=== PATIENT | male | born 2000 | race Caucasian/White ===

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

== ENCOUNTER 2020-01-27 09:00 | Outpatient (RCR) | payer OTHER, SELFPAY ==
--- NOTE | 2020-01-27 09:00 | BH.COMM ---
Communication Note - Communication with Client Communication Note: met with pt to complete initial paperwork and to complete [facility] Screening. No significant changes since pre-admission screening. Low risk for suicide. No suicidal ideations in the past month. Reports mainly passive thoughts of . Protective factors. Future-oriented.
--- NOTE | 2020-01-27 09:06 | BH.SGPN.GN ---
Behaviors/Verbalizations/Mental Status: []Client alert and oriented, casual dress, hygiene tended to. Eye contact good. Motor activity appropriate. Speech within normal limits. Affect congruent, mood anxious, depressed. Thoughts linear, logical, no signs of hallucinations or delusions. Client denies any active suicidal ideation or intent. Client Response/Progress/Benefit: []Client new to IOP program. He did well to respond to session AEB pt listening attentively to others and being willing to process with the group. Pt identified a mental health positive as making an effort to get outside and go for walks with his dog which has helped to improve his mood. Pt stated additional mental health positive as taking over the cooking responsibilities which he shared has helped to relax his and distract from current worries. Identified current stressor as his grandfather?s health and vulnerability to COVID-19 virus. Pt seemed to benefit from support from peers and challenging himself to identify ways he may be able to practice self-compassion. Pt to continue IOP to increase insight into healthy coping, challenge distorted thinking and reduce mental health sx. Narrative Note: []
--- NOTE | 2020-01-27 10:13 | BH.SGPN.GN ---
Behaviors/Verbalizations/Mental Status: []Client alert and oriented, casually dressed and groomed. Eye contact good. Motor activity appropriate. Speech within normal limits. Affect constricted, mood anxious. Thoughts linear, logical, no signs of hallucinations or delusions. Client Response/Progress/Benefit: []Client responded well to session, attentive and engaged throughout session, taking notes. Client appeared to connect with the topic of fear of failure. Client participated in the discussion of famous failures and was nodding frequently. Client nodded that he has unfairly labeled himself as a failure before due to one mistake or setback. Group identified the impacts of fear of failure on mental health which included; avoidance of new opportunities, poor self-esteem, self-sabotage, increased anxiety and depression, and decreased confidence. Client acknowledged that fear of failure can lead to increased depression and anxiety. Client agreed with peers that in order to move past failure it is important to challenge one?s perspective on failure. Client seemed to benefit from increased awareness of how fear of failure can impact mental health. Engaged and positive during the group activity, helping peers problem-solve solutions. Client's first day of IOP. Will continue IOP tx to prevent decompensation, reduce anxiety, and improve daily functioning. Narrative Note: []
--- NOTE | 2020-01-27 11:15 | BH.SGPN.GN ---
Behaviors/Verbalizations/Mental Status: []Client alert and oriented, casually dressed and groomed. Eye contact good. Motor activity appropriate. Speech within normal limits. Affect constricted, mood anxious. Thoughts linear, logical, no signs of hallucinations or delusions. Client Response/Progress/Benefit: []Client responded well to session, participating during the group activity and willing to complete the worksheet. Client worked with the group to complete the challenge activity and the group shared that support and guidance from fellow participants helped to accomplish the activity. Client completed the fear of failure worksheet and reported that fear of failure is keeping client from applying for a job or keeping a job. Client able to identify barriers that reinforce his fear of failure which included; negative self-talk, lack of plan/direction, lack of motivation, habits and learned behaviors, and fear of stepping out of his comfort zone. Client attentive during discussion of the different strategies to help overcome fear of failure. Group identified strategies such as; positive self-talk, affirmations, opposite action, keeping track of wins, setting smart goals, and accepting that mistakes happen. Client selected wanting to work on using positive self-talk/affirmations to overcome fear of failure. Client appeared to benefit from learning ways to overcome fear of failure. Will continue IOP tx to prevent decompensation, increase healthy coping skills, and improve daily functioning. Narrative Note: []
--- NOTE | 2020-01-27 18:22 | BH.DR.ITP ---
Initial Treatment Plan - Patient Information Visit Information: ADMISSION DATE: EXPECTED LOS: 4-6 weeks - Problems/Symptoms Problem #1:: Depression Symptom:: Sadness, hopelessness, worthlessness, passive thoughts of Problem #2:: Anxiety Symptom:: panic attacks, rumination
--- NOTE | 2020-01-28 09:32 | BH.NA ---
Physical Data - Vital Signs Pulse Rate: 80 Respiratory Rate: 14 Blood Pressure: 118/68 - Height/Weight Height: 1.75 m Weight:: 113.398 kg Weight in Pounds: 250.0 lbs Current Medication Compliance - Medication Compliance Do you take your medication as prescribed?: Yes Nutritional History - Appetite Nutritional Instructions:: If client shows signs of a swallowing problem, weight change of 10 pounds or more in the last month, or is on a diabetic diet, the physician will review and request a dietitian consult, as appropriate. All unintentional weight loss will be referred to the physician for decision on need for dietitian consult. Describe your appetite:: Good Functional Assessment - Sleep Pattern Describe any problems with sleeping: Client states he sleeps 8-10 hours per night. Sensory/Communication Assess - Vision Problems Do you have any vision problems?: Glasses - Communication Problems Do you have difficulty understanding what people are saying?: No Learning Assessment - Education What is your level of education?: Some College Medical Problems/History - Pain Assessment Do you have acute or chronic pain?: No Surgical History - Surgical History Have you had any surgeries? If so, list type and date:: Yes - wisdom teeth Substance Abuse - Substance Abuse Please describe substance abuse in the last 30 days:: Client denies past or present use of alcohol, tobacco or drugs. Client states he drinks caffiene daily, 1-2 cans of pop per day. Mental Status Summary - Mental Status Significant Findings/Observations on Appearance and Mood:: Client is alert and oriented x 4. Client is casually groomed. Client is cooperative with assessment. Client makes fair eye contact. Client's speech has normal rate and volume, clear and coherent. Client appears mildly depressed and mildly anxious. Client makes logical associations and has normal processing. Client has good attention. Client denies delusions/hallucinations, no evidence of same. Client denies current SI, states he has passive SI about 1 time per week. Suicide Assessment - Suicidal Ideation Are you currently or have you been suicidal in the past?: Yes - denies current SI Suicidal Intentional Rating Scale (SIRS): Suicidal thoughts (past) Physician Notification: If Active suicidal thoughts/Will not contract for safety is checked, contact physician and document in the Physician Notification section below. Past Psychiatric History - MH Treatment Hx Past Psychiatric Medications:: Prozac Age of first mental health symptoms: Client states he first went to grief counseling in 2017 when his brother . Client states he was officially diagnosed with depression in July 2019 when he had a suicide attempt. Describe (age, circumstance, etc) any past hospitalizations: Client was hospitalized at [facility] in July 2019 after a suicide attempt with a phone cord around his neck. Current providers for mental health treatment (counselor, psychiatrist, [facility] trimmer, etc.): Client sees Ahmet Thomas for therapy and psychiatrist Dr. Fischer at [facility] in [place]. Fall Risk Assessment - Age Age: Less than 60 - Mental Status Mental Status: Willing & able to ask for assistance when needed - Physical Status Physical Status: No problems - Impairments Impairments: None - Elimination Elimination: Continent AND independent - Gait or Balance Gait or Balance: Walks independently - Hx of Falls History of falls in the past 6 months: No known history - Medications/Substances Psychotropics:: Antidepressants Medications/substances used within the past 24 hours or ordered to administer: 1-2 of the medications/substances listed above - Total Score Total Points:: 1 RN Summary of Impressions - Impressions Recommendations: Include psychiatric and medical issues, treatment planning recommendations, and discharge planning needs. 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 - Level of Care How do the client's current symptoms and functional deficits support need for this level of care?: Client states his feelings of depression have continued since his hospitalization in July of 2019 for a suicide attempt. Client reports feelings of decreased motivation, decreased energy, hopelessness, sleeping too much at times, and being avoidant of others. Client states he has panic attacks once every week or every other week, reports feelings of SOB, chest pressure, hyperventilating and feelings of being overwhelmed during panic attack. Client states he does have self-harming behavior at times, and at times it is related to the anxiety he feels during a panic attack. Client has 2 scratches on his left hand that are scabbed over at this time that he starts are from scratching himself a few days ago. Client has scar on left forearm from previous self-harm. IOP will promote gains and prevent further decompensation while providing social support and skills training.
[2020-01-28 10:42] VITALS: BP 118/68; PULSE 80; RESP 14
== END 2020-01-27 23:59 ==
LOC: BHIOP 09:00
PROVIDERS: Referring Provider Psychiatry & Neurology Psychiatry; Visit Provider Psychiatry & Neurology Psychiatry
DX: F32.9 Major depressive disorder, single episode, unspecified (principal); F41.9 Anxiety disorder, unspecified
CPT/HCPCS: H0035; 90853

== ENCOUNTER 2020-01-28 09:00 | Outpatient (RCR) | payer OTHER, SELFPAY ==
--- NOTE | 2020-01-28 10:08 | BH.SGPN.GN ---
Behaviors/Verbalizations/Mental Status: []Client eye contact good, casually dressed, motor activity appropriate, did not speak during session, but attentive. Mood Anxious, Affect constricted. thoughts linear and intact, no evidence of delusions or hallucinations. Client Response/Progress/Benefit: []Client was an engaged participant throughout group session AEB client listening attentively and taking notes throughout. Client was quiet during group, but he listened and nodded as the group discussed the quote and the ways in which people cope with stressors. Agreed that sometimes people, including himself, cope using unhealthy skills. Group identified unhealthy coping skills which included; denying there is a problem, procrastinating, sleeping, avoidance, and externalizing. Group identified consequences of using unhealthy coping skills which included; problem gets worse, can increase intensity of mental health symptoms, cause guilt, and hurt relationships. Client agreed that learning healthy coping skills takes self-awareness and practice. Listened to the benefits of having a balance of internal and external coping skills. Client seemed to benefit from increased awareness of importance of increasing healthy coping skills and consequences of utilizing unhealthy coping skills. Client?s first week of IOP tx. Will continue IOP tx to prevent decompensation of symptoms, increase healthy coping skills, and improve functioning. Narrative Note: []
--- NOTE | 2020-01-28 11:10 | BH.SGPN.GN ---
Behaviors/Verbalizations/Mental Status: []Client alert and oriented, casually dressed and groomed. Eye contact good. Motor activity appropriate. Speech within normal limits, quiet. Affect congruent, mood depressed and anxious. Thoughts linear, logical, no signs of hallucinations or delusions. Client Response/Progress/Benefit: []Client responded well to session, taking notes and engaged during discussion. Providing more input than in previous session, though remained mostly passive. He contributed as the group discussed the different categories of coping skills which included distraction, emotional release, grounding, self-love, and thought challenging. Client identified using distraction at times but finds this often leads to avoidance which he identified as unhealthy. Participated in creating a coping skills ?menu? for the five categories of coping skills. Client identified wanting to focus on improving thought challenging skills this week. Shared his will help to reduce negative self-talk. He appeared to benefit from increasing repertoire of healthy coping skills. Client progress shown by improved engagement. Will continue IOP tx to prevent decompensation, improve mood stability, and promote healthy change behaviors. Narrative Note: []
--- NOTE | 2020-01-28 11:31 | BH.PSY.EVA_ITS ---
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 Patient gets along with everyone living in his house. He was referred to [facility] by a counselor for decreased functioning due to worsening depression and anxiety symptoms. The patient dropped out of college in 2018 secondary to worsening depression. He had been a finance major. He left his job also when in November 2019. He has been depressed for the most part since 2018. His younger brother in 2017 from a rare cancer and he feels that this has been a trigger for his tendency towards depression since that time. Patient endorses feeling depressed and somewhat sad but he feels that his mood has improved a little in the past week. He does endorse feeling hopeless, worthless but denies any guilt. He has no motivation but does enjoy playing video games, writing and cooking lately. He describes his appetite is good and he has had no change in weight. His sleep is okay he gets anywhere from 6 to 10 hours a night. His energy level is decreased and his concentration is decreased at times. He has a history of passive thoughts that he would not care if he or did not wake up in the morning. He denies any active or fleeting suicidal ideation in recent weeks. He denies homicidal ideation, hallucinations, delusions or sebastian history. He does complain of severe anxiety and he gets a panic attack about once a month now. When he was working he would get a panic attack once or twice every 2 weeks. When he gets very anxious he gets shortness of breath, chest tightness, increased heart rate and feeling of impending doom. He describes himself as a worrier by nature. He denies OCD, eating disorder, trauma or PTSD. He does have a history of self-harm and he most recently in the past few weeks scratched his left hand on the dorsal skin with his fingernails. In addition he scratched his anterior left lower arm. No stitches were required. Current Psychiatric Medications: [] BuSpar 10 mg (2 tabs p.o. 3 times daily); Zoloft 50 mg p.o. daily (x3 weeks); Prozac discontinued 1 week ago. Past Psychiatric History: [] He has a history of one psychiatric admission at [facility] in July 2019 for about 5 to 7 days. He was admitted due to depression with a suicide attempt by putting a phone cord around his neck. The patient says he stopped himself and texted his girlfriend and then his mother came over and he was admitted from the emergency room. He states that this was a suicide attempt. No other suicide attempts. He has a psychiatrist and he sees that person next on March 18, 2020. He has had counseling since 2017 when his brother of cancer. He first did any self-harm by scratching himself in 2018. He was first depressed in 2017 shortly after his brother . He first took any meds for psychiatric reasons at age 17 after his brother . At that time he took Prozac and Xanax. He did not like the way Xanax made him feel so he stopped it. Substance Use History: [] Non-smoker; no alcohol use and no marijuana use. No drug use whatsoever. Allergies: [] No known allergies Medications: [] BuSpar and Zoloft only Past Medical History: [] Negative. [place] teeth but no other surgeries. Normal sexual function. Overweight. Family Psychiatric History: [] His mother and father are both in their mid 50s. Father has diabetes mellitus mother is relatively healthy. The father has a history of OCD and anxiety and takes Zoloft. Psych history in the family he feels is otherwise negative. No suicides in the family. He has a paternal uncle who is an alcoholic. Personal/Social History: [] He was born and raised in [facility]. He describes his childhood as good. His parents are and are loving. He denies any physical, verbal or sexual abuse. He had one brother 2 years younger than him who in 2 separate thousand 17 at age 15 from a rare liver cancer when the patient was 18 years old. This was a trigger for the patient to become depressed and anxious. School was good for him and he was mostly in gifted classes 1 young. He graduated high school and went to [employer] but he quit after the first semester. He was a finance major. 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 He currently has a girlfriend of 18 months and she is supportive. He has not had any other serious girlfriends. 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 Review of Systems: [] Negative except as noted in present illness. Vital Signs: [] Reviewed in nurse's notes and negative. Mental Status Examination: [] Patient is a 19-year-old male who appears normal for stated age and is wearing glasses. He is casually dressed and groomed with good hygiene. He is cooperative during the interview and is somewhat quiet by nature. Eye contact is good. Speech is normal rate and rhythm and fluent with no pressure. Mood is depressed. Affect is constricted and consistent with depression. Thought processes organized and goal-directed. Thought content: No evidence of hallucinations or delusions. There is evidence of passive thoughts that he wound care if he . No evidence of suicidal or homicidal ideation at this time. Reality testing is intact. Intelligence is above average. Judgment is intact. Insight: Some present. Impulsivity moderate. Diagnoses: [] [place] I: [] Major depressive disorder recurrent severe without psychosis; generalized anxiety disorder [place] II: [] Mild cluster B traits [place] III: [] Negative [place] IV: [] School, work issues Plan: [] The patient will start the IOP program at [facility] in behavioral health as the support, structure, education, individual and group therapy will hopefully prevent worsening of the patient's symptoms that might require hospitalization. He felt safe during the interview and if at any time he does not feel safe he will tell us at the IOP or go to the emergency room. The risk, options, possible benefits and side effects and complications of the medications were discussed with the patient and he understands and accepts these. He agreed to increase his Zoloft to 100 mg p.o. daily. He has some at home and another 90-day prescription of [address] so he will take two 50 mg tablets of Zoloft for a total of 100 mg starting in the next day or 2. No prescription was given. I will see the patient in follow-up in 2 to 3 weeks.
--- NOTE | 2020-01-29 09:05 | BH.SGPN.GN ---
Behaviors/Verbalizations/Mental Status: []Client alert and oriented, casually dressed and groomed. Eye contact fair. Motor activity appropriate. Speech within normal limits. Affect congruent, mood anxious and euthymic. Thoughts linear, logical, no signs of hallucinations or delusions. Reviewed client?s symptom tracker, Client marked 2/5 for thoughts of suicide and 0/5 for risk of suicide. Client's individual therapist will be notified. Client Response/Progress/Benefit: []Client responded well to session, attentive and providing supportive statements to peers. Client reports feeling anxious and content today. Client shared he feels anxious because his family experienced an unexpected stressor last night. Client stated even though the problem was resolved, he continues to experience some residual anxiety this morning. Client reported he is glad to be in group today and identified this as a win. Client shared his other win is he practiced thought challenging yesterday while he was cooking. Client stated his food did not turntable man like he had hoped and instead of giving up or criticizing himself, he reminded himself now I know what not to do next time. Reflected on the benefits he experienced by challenging his thinking which included; feeling less depressed and being more willing to try again. Appeared to benefit from reflecting on his application of thought challenging. Will continue IOP tx to prevent decompensation, improve daily functioning, and increase healthy coping skills. Narrative Note: []
--- NOTE | 2020-01-29 10:12 | BH.SGPN.GN ---
Behaviors/Verbalizations/Mental Status: []Client alert and orient. Appearance casual and appropriately groomed. Speech an appropriate rate and tone. Motor activity WNL. Mood depressed and anxious, affect congruent to mood. No evidence of delusion or hallucinations.? Client Response/Progress/Benefit: []Pt receptive of session, engaged throughout the discussion though remaining a mostly passive participant throughout. Attentive to discussion on the importance of healthy communication. Pt listened as the group defined healthy communication and it?s various attributes. Group discussed benefits of healthy communications on mental health and maintaining healthy relationships which included: improved mood, increased ability to get your point across, needs are more likely to be met, increased ability to collaborate with others, and healthier relationships. Pt receptive of and appeared to benefit from psychoeducation portion discussing different styles of communication, nodding throughout and taking notes. Pt noted identifying with becoming more assertive in communication regarding his emotions. Pt shared previously utilizing passive communication but has been making efforts to be more assertive so he can get his needs met and supports know how to help him. Pt to continue in IOP tx to continue to promote healthy change behaviors, reduce depression, and prevent decompensation. Narrative Note: []
--- NOTE | 2020-01-30 11:15 | BH.SGPN.GN ---
Behaviors/Verbalizations/Mental Status: []Client alert and oriented, casual dress, hygiene tended to. Eye contact fair. Motor activity appropriate. Speech within normal limits. Affect constricted, mood depressed and anxious. Thoughts linear, logical, no signs of hallucinations or delusions. Client Response/Progress/Benefit: []Pt responded well to session AEB pt listening attentively to others and providing input if elicited by therapist. Pt stated now that he utilizes more assertive communication with his support people he recognizes he gets his needs met more often and others are less frustrated with him. Pt reported he needs to continue to work on being assertive, especially with sharing how he feels. Pt reported in the past he would just shut down and not tell anyone what was bothering him. Pt worked with group to identify strategies to improve communication. Pt stated he will work on improving his communication by expressing his feelings more often to people he trusts. Pt to continue IOP to increase healthy skills, decrease anxious symptoms and prevent decompensation. Narrative Note: []
--- NOTE | 2020-02-03 09:08 | BH.SGPN.GN ---
Behaviors/Verbalizations/Mental Status: []Client alert and oriented, casually dressed and groomed. Eye contact good. Motor activity appropriate. Speech within normal limits. Affect constricted, mood dysthymic. Thoughts linear, logical, no signs of hallucinations or delusions. Reviewed client?s symptom tracker, no risk for suicidal behaviors or intent as of 02/03/20 client had 2/5 for suicidal ideations which is within client's baseline. Client Response/Progress/Benefit: []Client responded well to session, attentive and participating when prompted. Client reports feeling exhausted today. Client shared he has begun feeling down about being all cooped up as client missed his grandparents and doing things with others. Client stated despite feeling down about quarantine, he has been able to use coping skills and find mental health wins. Client stated he used healthy distractions of cooking and reading this weekend. Client also used opposite action today to get to group because he did not want to get out of bed this morning. Client stated using opposite action and healthy distractions makes client feel like he is moving forward and making progress. Appeared to benefit from reflecting on his application of coping skills. Will continue IOP tx to prevent decompensation, improve mood stability, and increase repertoire of healthy coping skills. Narrative Note: []
--- NOTE | 2020-02-03 10:16 | BH.SGPN.GN ---
Behaviors/Verbalizations/Mental Status: []Client alert and oriented, casually dressed and groomed. Eye contact good. Motor activity appropriate. Speech within normal limits. Affect constricted, mood dysthymic. Thoughts linear, logical, no signs of hallucinations or delusions. Client Response/Progress/Benefit: []Client was attentive throughout AEB actively listening and taking notes throughout. Participated in discussion of the quote and shared agreeing that choosing a healthier path in life can be difficult, especially when fear of the unknown comes into play. Remained mostly passive throughout, though nodding. The group worked together to identify barriers that may prevent choosing a new and healthier path to mental wellness which included; not wanting the change/lack of readiness, lack of motivation and willingness to put forth effort, limited support, as well as having a negative or distorted perspective. Attentive during psychoeducation on the chapters of life, attentive to discussion distinguishing factors in each chapter. Benefited from increased awareness and education on barriers to choosing new wellness paths and the different chapters of life experienced in taking a new path. Progress noted in pt ability to connect with materials discussed, though continues to struggle to provide increased input in group. Will continue IOP tx to further reduce depression, promote healthy coping, thought challenging, and self-care, while improving client?s ability to function at baseline. Narrative Note: []
--- NOTE | 2020-02-03 11:15 | BH.SGPN.GN ---
Behaviors/Verbalizations/Mental Status: []Client alert and oriented, casual dress, hygiene tended to. Eye contact good. Motor activity appropriate. Speech within normal limits. Affect flat, mood depressed and anxious. Thoughts linear, logical, no signs of hallucinations or delusions. Client Response/Progress/Benefit: []Client was an engaged participant in group discussion, contributing to discussion at times and listened attentively to others. Client reported believes he is currently in chapter 3? as client shared he has awareness of behavior that keeps him stuck, but still will engage in that behavior at times. Completed worksheet and willing to share with the group. Pt stated negative thinking, low self-esteem, fear of failure, and isolation are currently keeping him stuck from progress. Pt reported he will work on decreasing negative thoughts by reframing at least 2 negative thoughts everyday. Benefited from group by identifying thoughts and behaviors that have kept him stuck and identifying goal to promote progress. Will continue in IOP to increase healthy coping, challenge distorted thoughts and prevent decompensation. Narrative Note: []
--- NOTE | 2020-02-04 09:02 | BH.SGPN.GN ---
Behaviors/Verbalizations/Mental Status: []Client alert and oriented, casual in appearance. Eye contact fair to good. Motor activity appropriate. Speech within normal limits, quiet. Affect congruent, mood anxious, dysthymic. Thoughts linear, logical, no signs of hallucinations or delusions. Reviewed daily symptom tracker and client reports scores of suicidal ideation at a 1/5 which is decreased from his identified baseline of 2/5. Denies any plan or intent at this time. Client Response/Progress/Benefit: []Pt was an active participant in group AEB pt listening attentively, nodding, and willingness to process with the group. Emotion for today is tired and shared that this is due to getting limited sleep the night before. He identified mental health positive as being able to identify his desire to cancel group due to limited sleep and utilize opposite action skills to encourage himself to get out of the house. Pt stated additional mental health positive as challenging himself to spend some time outdoors in the nice weather. Indicated this aided in elevating his mood the prior date. Expressed stressor as continuing to struggle with lack of sleep. Appeared to benefit from support of the group. Progress noted in pt ability to begin more openly engage in group. Continued IOP tx recommended to continue application of healthy coping skills, identify and challenge distorted thoughts, reduce mental health sx, and prevent decompensation. Narrative Note: []
--- NOTE | 2020-02-04 11:14 | BH.SGPN.GN ---
Behaviors/Verbalizations/Mental Status: []Client alert and oriented, casually dressed and groomed. Eye contact good. Motor activity appropriate. Speech within normal limits. Affect constricted, mood euthymic. Thoughts linear, logical, no signs of hallucinations or delusions. Client Response/Progress/Benefit: []Client engaged participant as evidenced by client providing input throughout discussion and listening attentively to peers. Client worked cooperatively with peers to identify how each resiliency component can help increase personal resiliency. Client identified current stressors in his life that he would like to become more resilient towards. Client reported he wants to work on the resilience component of nurturing a positive view of himself by identifying his wins each night. Client identified personal resilience factors that will support client in this goal which included learning from the past, practicing positive self-talk, and practicing acceptance of what is happening. Client appeared to benefit from identifying goal to improve personal resilience factors. Client to continue IOP to reduce depression, improve mood stability, and increase healthy coping skills. Narrative Note: []
--- NOTE | 2020-02-04 11:51 | BH.PSA ---
Source of Information - Presenting Problems/Circumstances Problems, Referral Source, Mental Status, Client: Client is a 19-year-old single male who was referred to the program by outpatient counselor due to increased sx of depression and anxiety resulting in pt leaving his most recent job and effecting ability to function at baseline. Client additionally dropped out of college in 2019 secondary to worsening depression. Psychiatric Presentation - Psych Issues & Need for Admission Psychiatric Issues:: Depression, passive SI, anxiety, panic Past Psychiatric History - MH Treatment Hx Treatment History: He has a history of one psychiatric admission at [facility] in July 2019 for about 5 to 7 days. [facility] following the of his brother due to cancer. Denies any grief specific counseling First hospitalization:: [facility] Jul 2019 for 5-7 days due to suicide attempt interrupted, self Most recent hospitalization:: as above Medication Trials:: Yes - prozac, xanax ECT Therapy:: No Describe (age, circumstance, etc) any past hospitalizations: He has a history of one psychiatric admission at [facility] in July 2019 for about 5 to 7 days. He was admitted due to depression with a suicide attempt by putting a phone cord around his neck. The patient says he stopped himself and texted his girlfriend and then his mother came over and he was admitted from the emergency room. Current providers for mental health treatment (counselor, psychiatrist, therapeutic case manager, etc.): [facility] for [facility], [facility] as well Development & Family of Origin - Childhood Significant Childhood Events: Pt brother in 2016 when pt was 16 of a rare form of cancer. Hx of self-harm via scratching self on arm, last occurred several weeks ago. - Family Who currently lives in your home?: Lives at home with his mother and father. A close friend of pt's is also staying with the family for the summer as his parents have moved out of state. Describe family composition:: Pt's mother and father are and pt reports having a close relationship with them. Pt has one brother, whom in 2016 at age 15 due to a rare form of liver cancer. - Family History Family Hx of Psychiatric or AOD Problems: PT father has a history of OCD and anxiety and takes Zoloft. Psych history in the family he feels is otherwise negative. No suicides in the family. He has a paternal uncle who is an alcoholic. Parents continue to struggle with grief associates with the loss of their son in 2017 Ethnicity - Culture Do you identify yourself with any particular cultural, ethnic background, or community?: No - Sexuality Sexual Orientation: Declined to answer - Comments Additional Information:: current girlfriend of 18 months whom is supportive Spirituality - Zoroastrianism Do you currently identify with any organized anabaptism?: Unspecified - Beliefs Is there a particular form of support from this community you can use for your recovery?: No Mental Status - Memory Recent Memory: Fair Remote Memory: Fair - Concentration Concentration: Fair - Eye Contact Eye Contact: Fair - Speech Speech: Soft - Thought Process Thought Process: Logical Insight: Fair Judgment: Fair Behavior: Anxious - Orientation Orientation: Time, Person, Place, Situation - Appearance Appearance: Disheveled - Mood Mood: Anxious, Depressed, Dysphoric/tearful - Affect Affect: Appropriate/calm Suicide Assessment - Suicidal Ideation Have you ever felt like hurting yourself?: Yes Please explain:: self-harming hx, hx of one prior suicide attempt, interrupted by self in 2019 Were you using ETOH/drugs at the time?: No Suicidal Intentional Rating Scale (SIRS): Current suicidal thoughts/No plan/Contracts for safety Physician Notification: If Active suicidal thoughts/Will not contract for safety is checked, contact physician and document in the Physician Notification section below. Violent Behavior/Abuse History - Homicidal Ideation Do you have any homicidal thoughts? If so, explain:: No Is there a known potential victim? If yes, who:: No - Abuse Have you ever been abused?: No - Life Events Are there any other significant life events?: Financial loss - recently quit job due to mental health issues, - loss fo brother in 2017 due to liver cancer, Hardships - dropped out of college in 2019 due to mental health - Safety Do you ever feel threatened in your home? If yes, describe:: No Adult Social History - Age 18 to Present Describe your current support system:: Reports his parents, girlfriend, and close friend whom is currently living with pt are major supports Substance Use - Substance Substance Use Type: Caffeine - IV Substance Use Do you have a history of IV use?: denies Leisure/Social Activities - Interests What do you enjoy or might be interested in learning about?: enjoys reading, writing, playing video games, nature, spending time outdoors, animals Education & Occupational Histo - Education What is your level of education?: Some College - Dropped out of [employer] due to mental ashley issues Do you have any learning disabilities?: No - Occupation List any current or past employment:: Recently quit job at a [employer] due to depression, previously has worked at [employer] - Service Have you ever been in the ?: No Legal History - Records Have you had any past legal charges?: No Do you have any current legal charges?: No Have you ever been incarcerated? If yes, describe:: No - Court Orders Have you had any past court orders for psychiatric treatment?: No Do you have a present court order for psychiatric treatment?: No Problem Checklist - Current Problem Areas Problem List: Depressed mood/sad, Bereavement, Anxiety, Additional psychosocial stressors - career questioning Discharge Planning Needs - Anticipated Follow-Up Private Therapist/Psychiatrist:: [facility] Family and Caregiver Contacts:: Mother and father Release of Information Signed:: Yes Snout Puller's Assessment - Client's Needs What are the client's feelings about the program?: Pt reports feeling hopeful and looking forward to gaining skills for better managing his mental health sx through the IOP program What are the client's goals?: Decrease depression and anxiety, improve self-confidence, improve independent living skills Diagnoses - Diagnoses Diagnosis #1:: Major depressive disorder recurrent severe without psychosis Diagnosis #2:: Generalized Anxiety Disorder Interpretive Summary - Interpretive Summary Interpretive Summary: Client is a 19-year-old single male who was referred to the program by outpatient counselor due to increased sx of depression and anxiety resulting in pt leaving his most recent job and effecting ability to function at baseline. Client additionally dropped out of college in 2019 secondary to worsening depression. At time of intake, pt reports he has been depressed for the most part since 2018. His younger brother in 2017 from a rare cancer and he feels that this has been a trigger for his tendency towards depression since that time. Client has a hx of one prior hospitalization in July 2019 due to a prior suicide attempt. He has a history of passive thoughts that he would not care if he or did not wake up in the morning. He denies any current active or fleeting suicidal ideation. Client is currently endorsing a depressed mood with anhedonia, low energy, and passive thoughts of . Client also reports increased anxiety, agitation, and negative thinking which impact social, familial, and occupational functioning Treatment Plan Recommendations - Recommendations Guidelines: Special needs identified to be included in the development of an individualized treatment plan regarding past psychiatric history and treatment, developmental events, family relationships/events/culture, past and/or current educational, occupational, social, and residential experience, and legal status. Recommendations:: The patient will start the IOP program at [facility] in behavioral health as the support, structure, education, individual and group therapy will hopefully prevent worsening of the patient's symptoms that might require hospitalization.
--- NOTE | 2020-02-04 11:51 | BH.MTP_ITS ---
[facility] Treatment Plan - Patient Information Program Physician:: Dr. Charlene Cooney Primary Therapist:: DANIELLE Olsen - Psychiatric Diagnoses Psychiatric Diagnoses:: Major depressive disorder recurrent severe without psychosis; generalized anxiety disorder Diagnosis Code(s):: F 33.2 - Estimated LOS Estimated LOS (in weeks):: 6 Problem/Goal #1 - Problem/Goal #1 Stated Goal:: Client will reduce depression, feelings of hopelessness, and suicidal ideation due to Major Depressive Disorder through Intensive Outpatient Program. Description of Barriers: Pt's negative core beliefs, distorted thoughts, hopelessness, anhedonia, and chronic suicidal ideation could be potential barriers to treatment. Functional Impact: Client is a 19-year-old single male who was referred to the program by outpatient counselor due to increased sx of depression and anxiety resulting in pt leaving his most recent job and effecting ability to function at baseline. Client additionally dropped out of college in 2018 secondary to worsening depression. At time of intake, pt reports he has been depressed for the most part since 2018. His younger brother in 2016 from a rare cancer and he feels that this has been a trigger for his tendency towards depression since that time. Client has a hx of one prior hospitalization in July 2019 due to a prior suicide attempt. He has a history of passive thoughts that he would not care if he or did not wake up in the morning. He denies any current active or fleeting suicidal ideation. Client is currently endorsing a depressed mood with anhedonia, low energy, and passive thoughts of . Client also reports increased anxiety, agitation, and negative thinking which impact social, familial, and occupational functioning Goal Relevant Strengths/Supports: Pt is intelligent, creative, has prior coun seling experience, resilient, and expresses motivation to get better. - Objectives Objective #1 Stated Objective: Identify 2-3 thoughts or behaviors that reinforce depressive symptoms and replace negative thoughts with more rational thinking. Interventions: Therapist will help client identify distorted thinking that t riggers or reinforces depressive state. Therapist will provide client with resources to help guide in replace trigger thoughts or behaviors. Discharge Criteria: Client will have met this goal when he can verbalize at least 2 thoughts or behaviors that reinforce depressive episode, identify rational response to replace those thoughts, and effectively be able to defeat suicidal ideation. Target Date: 03/17/20 Review Date: 03/03/20 Objective #2 Stated Objective: Pt will decrease depressive symptoms AEB pt?s score on the DSM 5 cross-cutting measure and improve pt?s daily functioning. Interventions: Through groups and individual therapy, pt will be provided with education on cognitive distortions, mistaken beliefs, and identifying and combating negative self-talk. Therapist will assist pt with getting back into the activities she once enjoyed as well as increasing healthy coping strategies. Discharge Criteria: Pt will have met this goal when pt?s score on the DSM 5 cross cutting measure for depression has been decreased and per pt?s report daily functioning has improved. Target Date: 03/17/20 Review Date: 03/03/20 Problem/Goal #2 - Problem/Goal #2 Stated Goal:: Stabilize anxiety level while increasing ability to function on daily basis. Description of Barriers: Pt's negative core beliefs, distorted thoughts, hopelessness, anhedonia, and chronic suicidal ideation could be potential barriers to treatment. Functional Impact: Client is a 19-year-old single male who was referred to the program by outpatient counselor due to increased sx of depression and anxiety resulting in pt leaving his most recent job and effecting ability to function at baseline. Client additionally dropped out of college in 2018 secondary to worsening depression. At time of intake, pt reports he has been depressed for the most part since 2018. His younger brother in 2017 from a rare cancer and he feels that this has been a trigger for his tendency towards depression since that time. Client has a hx of one prior hospitalization in July 2019 due to a prior suicide attempt. He has a history of passive thoughts that he would not care if he or did not wake up in the morning. He denies any current active or fleeting suicidal ideation. Client is currently endorsing a depressed mood with anhedonia, low energy, and passive thoughts of . Client also reports increased anxiety, agitation, and negative thinking which impact social, familial, and occupational functioning Goal Relevant Strengths/Supports: Pt is intelligent, creative, has prior counseling experience, resilient, and expresses motivation to get better. - Objectives Objective #1 Stated Objective: Client will learn and utilize 2-3 healthy coping strategies to manage anxious symptoms. Interventions: Therapist will assist client in learning internal coping strategies to manage anxious symptoms, along with helping client identify triggers. Discharge Criteria: Client will have achieved this goal when can consistently utilize at least 2 healthy coping strategies to manage anxious symptoms. Target Date: 03/17/20 Review Date: 03/03/20 Objective #2 Stated Objective: Pt will decrease anxious symptoms AEB pt?s score on the DSM 5 cross-cutting measure improve pt?s daily functioning. Interventions: Through groups and individual therapy, pt will be provided education about anxiety?s impact on body and common physiological reaction to anxiety. Therapist will teach pt appropriate breathing techniques and build healthy coping skills to manage daily anxieties. Discharge Criteria: Pt will have met this goal when pt?s score on the DSM 5 cross cutting measure for anxiety has been decreased and per pt?s report daily functioning has improved. Target Date: 03/17/20 Review Date: 03/03/20
--- NOTE | 2020-02-04 11:52 | BH.MDN ---
Multi-Disciplinary Note - Note 30-min Individual Time Started:: 10:42 Date: 02/04/20 Purpose of session/treatment goals addressed:: The purpose of this session was to gather information on client's current stressors, symptoms, and treatment goals. Another goal was to build rapport and introduce client to exposure therapy as a tool for reducing social anxiety. Eye Contact:: Good Motor Activity:: Appropriate Appearance:: Casual Speech:: Appropriate Mood:: Anxious, Depressed Affect:: Congruent Thoughts:: Linear, Logical, No evidence of hallucinations/delusions noted Staff Interventions:: Therapist used active listening and open-ended questions to explore client's current stressors, symptoms, history, and treatment goals. Provided empathic responses and supportive feedback. Therapist used NM component of strengths perspective to build rapport and help client identify personal resilience factors. Worked with client to establish goals for treatment. Therapist provided psychoeducation on anxiety and safety behaviors which reinforce anxiety. Client Response:: Client responded well to session, open to meeting with therapist and actively engaged throughout. Client was referred to program by outpatient therapist, Ahmet Thomas, at the [facility] for ongoing depression and anxiety impacting ability to function at baseline and preventing client from maintaining employment as a result. Client shared that he has struggled with his mental health off and on throughout his life, but noticed it has been increasingly worse in the past year. Client shared he had started at the [employer] last fall but struggled significantly with social anxiety and depression which resulted in client dropping out of school and shortly after being hospitalized in July of 2019 for suicidal ideation. He shared struggling to effectively manage his mental health since. Identified current symptoms include negative thoughts about self, rumination, depression, poor self-confidence, isolation, avoidance, increased anxiety, agitation, and anhedonia. Client discussed that he is hopeful the [facility] program will help him to improve his ability to manage his own mental health sx. Expressed he is becoming more comfortable in the [facility] treatment environment and has found the information discussed in groups to already be of help to him. Shared that he would like to specifically work on improving his variety of coping skills, increase emotion regulation skills, and reduce social anxiety. Client shared that his social anxiety has had a major impact on his depression and self-confidence as he often worries he will embarrass himself or make a mistake which has kept him from reaching out to others or trying new things in the past. Receptive of psychoeducation on safety behaviors and exposure therapy as a means of reducing overall anxiety. Expressed willingness to begin with challenging himself in the treatment environment to become more accustomed to speaking in groups. Expressed plans to begin with a small goal of providing input once per group. Risks/Concerns:: Client denies any active suicidal ideations, plan, and intent as of 02/04/20. Progress Toward Goals/Plan:: Client's first week of IOP tx. Appears to be making some progress in ability to apply skills already learned AEB reports of engaging in opposite action and increased use of thought challenging skills. Client is currently endorsing a depressed mood with anhedonia, low energy, and passive thoughts of . Client also reports increased anxiety, agitation, and negative thinking. Client shared his goals include reducing depression and anxiety, improving use of healthy coping skills, and improving self-esteem. Will continue IOP tx to prevent decompensation, improve daily functioning, and reduce anxiety. Time Stopped:: 11:15
--- NOTE | 2020-02-05 09:01 | BH.SGPN.GN ---
Behaviors/Verbalizations/Mental Status: []Client alert and oriented, casual dress, hygiene tended to. Eye contact good. Motor activity appropriate. Speech within normal limits. Affect constricted, mood dysthymic. Thoughts linear, logical, no signs of hallucinations or delusions. Reviewed client?s symptom tracker, pt indicates a 1/5 for suicidal thoughts and a 1/5 for suicidal intention. These scores are lower than pt's baseline for suicidal ideation and intent. Pt does not seem to be imminent risk for self. Client Response/Progress/Benefit: []Pt responded well to session as evidenced by pt openly sharing thoughts and feelings and listened attentively to peers. Pt reported a mental health positive as engaging in self-care by taking a nap because didn't sleep well the night before. Pt stated the nap made him feel more energized and able to be productive the rest of the night. Pt reported additional mental health positive as spending time with his cat which he found calming. Pt stated his stressor is not accomplishing everything on his to-do list yesterday. Pt stated at first he had negative thoughts about not being productive enough, but used thought challenge to help. Pt to continue IOP to increase healthy coping, challenge distorted thoughts and prevent decompensation. Narrative Note: []
--- NOTE | 2020-02-05 10:13 | BH.SGPN.GN ---
Behaviors/Verbalizations/Mental Status: []Client alert and oriented, casual appearance. Eye contact good. Motor activity appropriate. Speech within normal limits. Affect constricted, mood dysthymic and anxious. Thoughts linear, logical, no signs of hallucinations or delusions. Client Response/Progress/Benefit: []Client responded well to session, mostly quiet but nodding and engaged during the activity. Attentive during discussion on the quote. Group identified the benefits of change which included: personal growth, solving problems, improving mental health, getting out of bad circumstances, and getting unstuck. Worked with the group to identify barriers to change, which included: uncomfortable emotions such as anxiety, lack of motivation, lack of energy, external variables, and negative thinking. Client participated along with group in activity where they identified and discussed the emotions related to change. Client gave an example of a time when he felt torn about a change because he wanted to experience something different, but he did not want to go out of his comfort zone. Benefited from increased awareness and understanding of emotions, benefits, and barriers related to change. Will continue IOP tx to prevent decompensation, improve mood stability, and further combat distortions that reinforce symptoms. Narrative Note: []
--- NOTE | 2020-02-05 11:19 | BH.SGPN.GN ---
Behaviors/Verbalizations/Mental Status: []Client alert and oriented, casually dressed and groomed. Eye contact good. Motor activity appropriate. Speech within normal limits, quiet. Affect constricted, mood anxious and depressed. Thoughts linear, logical, no signs of hallucinations or delusions. Client Response/Progress/Benefit: []Client was a more active participant compared to baseline, AEB providing increased input during discussion, taking notes, and listening to peers. Client participated during discussion on the change process as well as weighing the pros and cons associated with change. He shared specific emotions one might experience throughout the process of change, indicating fear and excitement as emotions common with change. Client benefited from learning to work through pros/cons of personal changes through use of decisional balance sheet. Identified a change he wants to make is considering getting a job. Client able to identify the pros and cons of this change and indicated that making the change would improve his mood and feel more confident but might increase social anxiety. Did well to work with group to identify strategies for overcoming resistance to change, sharing that self-talk and opposite action is most helpful for him. Recommended continued IOP tx to promote use of behavior activation skills, increase consistent application of skills, reduce distorted thought patterns, and prevent decompensation. Narrative Note: []
--- NOTE | 2020-02-10 09:02 | BH.SGPN.GN ---
Behaviors/Verbalizations/Mental Status: []Client alert and oriented, appropriately groomed and casual in appearance. Eye contact good. Motor activity appropriate. Speech within normal limits, quiet. Affect congruent, mood anxious. Thoughts linear, logical, no signs of hallucinations or delusions. Reviewed daily symptom tracker and client reports suicidal ideation as 1/5 which is consistent with baseline, denies plan, or intent at this time. Client Response/Progress/Benefit: []Pt was an active participant in group discussion AEB listening to peers, providing some feedback, and openly processing with the group. Emotion for today is a little bit anxious but neutral. Pt identified mental health positive as being able to more consistently engage in activities he enjoys such as writing and cooking. Discussed with group a short story he has been working on and shared this aids with emotional release for him as well. Pt stated additional mental health positive as being able to go ?Easter caroling? to extended family member?s houses with his immediate family. Expressed that this helped him feel connected to supports he cannot physically be with ow due to COVID-19 restrictions. Current stressor identified as feeling anxious about not having a solid plan for his future. He was receptive of and appeared to benefit from feedback provided by group on reducing anxiety and reframing distorted thoughts. Progress noted in pt ability to more actively apply opposite action and healthy coping skills to reduce depression. Continues to struggle with self-deprecation. Continued IOP tx recommended to continue application of healthy coping skills, increase consistent skill application, and prevent decompensation. Narrative Note: []
--- NOTE | 2020-02-10 10:18 | BH.SGPN.GN ---
Behaviors/Verbalizations/Mental Status: []Client alert and oriented, casual appearance. Eye contact good. Motor activity appropriate. Speech within normal limits. Affect constricted, mood dysthymic. Thoughts linear, logical, no signs of hallucinations or delusions. Client Response/Progress/Benefit: []Client responded well to session and contributed to discussion of the quote, sharing ?we seek control because we are creatures of comfort. We don?t like to be uncomfortable, so we try all we can to get something back in our comfort zone.? Client connected with the group topic of crisis and helped to define crisis. Group identified examples of potential crises to include loss of a loved one, relationship problems, divorce, job loss, the current COVID-19 pandemic, and medical problems. Client agreed with peers that anything can lead to a crisis. Connected with discussion on how coping with external crises by using unhealthy coping skills could result in a personal crisis. Group identified unhealthy coping skills to include; using substances, denial, avoidance/isolation, anger outbursts, suicidal thoughts, and overscheduling. Group reported that it is important to have awareness of warning signs which can prevent hitting ?rock bottom.? Group identified warning signs for crisis and Client completed the personal warning signs worksheet. Identified crisis warning signs to included; loss of interest, not having regular sleep, and negative thinking. Benefited by increasing awareness of crisis and personal warning signs. Progress noted in client?s report of practicing opposite action and thought challenging more consistently. Will continue IOP tx to promote mood stability and further decrease intensity of symptoms. Narrative Note: []
--- NOTE | 2020-02-11 09:05 | BH.SGPN.GN ---
Behaviors/Verbalizations/Mental Status: []Client alert and oriented, casually dressed and groomed. Eye contact good. Motor activity appropriate. Speech within normal limits. Affect constricted, mood anxious. Thoughts linear, logical, no signs of hallucinations or delusions. Reviewed client?s symptom tracker, no signs of suicidal ideation, plan, or intent as of 02/11/20. Client Response/Progress/Benefit: []Client responded well to session, attentively listening and engaged during discussion. Client reports feeling lost but also hopeful today. Client shared he has been feeling lost and somewhat anxious about his future lately. Client stated he does not know exactly what he wants to do and what his life path will look like. Client shared in the past this would have lead to a depressive cycle, but he has been able to challenge his thinking. Client has also been looking into possible career paths and trying to figure out his interests which is helping client stay hopeful. Client reported his mental health wins today include beginning to identify hobbies and areas of interest as well as not having any thoughts of lately. Client shared he was having thoughts of daily on a daily basis, so this is significant for him. Appeared to benefit from reflecting on his use of thought challenging. Progress noted in client's reduced passive thoughts of . Will continue IOP tx as client continues to struggle with negative thoughts, anxiety, and managing his symptoms consistently. Narrative Note: []
--- NOTE | 2020-02-11 11:19 | BH.SGPN.GN ---
Behaviors/Verbalizations/Mental Status: []Pt eye contact good, casually dressed, motor activity appropriate, speech normal rate and tone, mood anxious and dysthymic, congruent affect, thoughts linear and intact, no evidence of delusions or hallucinations. Client Response/Progress/Benefit: []Client responded well to session AEB listening and taking notes, as well as providing increased input to discussion. Engaged in activity about facts and statistics of mental illness. Group connected with the mental health statistics, recognizing the prevalence of mental health. Group brainstormed strategies to combat social and perceived stigma which included: educating others and themselves, no longer using negative language about mental illness, being open about mental health, volunteering, and not using deflection like humor or joking to minimize symptoms. Client stated he believes he would benefit from sharing his mental health needs with his supports on a more consistent basis rather than avoid in order to reduce social and perceived mental health stigma. Appeared to benefit from increasing awareness of strategies to combat stigma. Progress in improved input and reduced depression. Will continue IOP tx to reduce anxiety and depression, improve change behaviors, improve consistent application of coping skills, and prevent decompensation. Narrative Note: []
--- NOTE | 2020-02-11 11:43 | PCM.BH.PN ---
Progress Note Progress Note: History of Present Illness/Interim History: [] The patient is a 19-year-old single male who is seen in follow-up at the behavioral health IOP program at [facility]. I last saw the patient 2 weeks ago and at that time his dose of Zoloft was increased to 100 mg p.o. daily. The patient states that he feels his mood is less depressed now and he feels that he has improved due to the increase in the Zoloft dose. He denies any hopelessness or worthlessness. He denies any passive thoughts that he would not care if he for the past 2 weeks. He is still very stressed by the COVID-19 quarantine in the isolation that it requires. He is also looking towards the future and is stressed by trying to decide what career or jobs that he wants to pursue. His sleep is adequate but he is aware that he needs to try to keep a regular sleep-wake hours. He is sometimes using ZzzQuil to help him sleep. He denies any thoughts of self-harm or any actions of self-harm. He is enjoying walking his 1-year-old puppy. He is still anxious but slightly less anxious than prior to increasing the dose of the Zoloft. He denies any suicidal or homicidal ideation. Discussed with the patient that he should get more improvement from the increase Zoloft as he is only been taking it for about 9 or 10 days now. Current Psychiatric Medications: [] Zoloft 100 mg p.o. daily (x9 days); BuSpar 10 mg (2 tabs p.o. 3 times daily). Mental Status Examination: [] Patient is a 19-year-old male who appears normal for stated age and has casual dress and grooming with good hygiene. He is wearing glasses. He is cooperative during the interview and his eye contact is good. His speech is normal rate and rhythm and fluent with no pressure. His mood is depressed but less depressed than before. His affect is constricted. His thought processes organized and goal-directed. Thought content: No evidence of suicidal ideation, homicidal ideation or passive thoughts of . No evidence of hallucinations or delusions. Judgment is intact. Insight: Some present. Impulsivity: Moderate. Diagnoses: [] [place] I: [] Major depressive disorder, recurrent, severe, without psychosis; generalized anxiety disorder [place] II: [] Mild cluster B traits [place] III: [] Negative [place] IV:[]]school and work issues Plan: [] The patient will continue the IOP program as the structure, support, education, and individual and group therapy will hopefully prevent worsening of the patient's symptoms that might require hospitalization. He felt safe during the interview and if at any time he does not feel safe he will tell us or go to the emergency room. The risk, options, possible benefits and side effects of the medication were discussed with the patient and he understands accepts these. He will continue his Zoloft at 100 mg p.o. daily. He is taking two 50 mg tablets since he has a large prescription of these at home. He will continue to follow-up with his outpatient providers and I will see the patient in follow-up also.
--- NOTE | 2020-02-11 12:39 | BH.MDN_ITS ---
Multi-Disciplinary Note - Note 45-min Individual Time Started:: 08:40 Date: 02/11/20 Purpose of session/treatment goals addressed:: The purpose of this session was to review client's current symptoms, stressors, and treatment goal progress. Another goal was to provide psychoeducation on depression maintenance cycles, distortions, and healthy coping skills. Eye Contact:: Good Motor Activity:: Appropriate Appearance:: Casual Speech:: Appropriate Mood:: Euthymic, Anxious Affect:: Congruent Thoughts:: Linear, Logical, No evidence of hallucinations/delusions noted Staff Interventions:: Therapist used active listening and open-ended questions to gather client's current symptoms, stressors, and perception of treatment goal progress. Therapist reviewed client's answers and helped client identify themes. Therapist provided psychoeducation on depression and depression maintenance cycles as well as the role of behaviors and cognitive distortions that reinforce depression. Therapist strength-based concepts of motivational interviewing to identify areas in which he is beginning to break current maintenance cycles. Discussed areas for continued focus and aided pt in brainstorming ways to further engage in prosocial activities. Provided pt with homework to complete a cognitive distortions self-assessment. Client Response:: Client responded well to session, open to meeting with therapist. Client expressed feeling ?tired but pretty good? on this date. Went on to express not receiving as much sleep as usual the past few days and attributes this to having more vivid dreams than usual that have woken him throughout the night. Client reflected on his progress in treatment thus fair, indicating that he believes he is seeing improvements in areas of both anxiety and depression. Discussed specifically seeing improvements in insight levels as he is now able to better recognize negative thoughts impacting his mood. Additionally noted that he has not experienced active thoughts of since beginning IOP treatment. Client shared increased comfort in croup environment which has aided in following through with his goal of speaking at least once per group. Although he has identified progress in various areas, Client discussed recent worries that he may be exhibiting warning signs for increased depression as he has been experiencing more loneliness and boredom when at home. Worked with therapist to review current routine and identify any recent changes contributing. Client shared he has not recently been cooking which is an activity he has recently found highly enjoyable. Receptive of challenging himself to do some cooking this weekend. Additionally, client expressed that he is naturally a more physically affectionate persona and that with the new social distancing restrictions he is struggling to adjust. Client shared struggling specifically in regard to feeling connected with his girlfriend when he is unable to hug her or see her in person. Receptive to brainstorming creative ways to feel more connected such as cooking with her via video chat, painting together on video chat, or reading together. Receptive to psychoeducation on depression and maintenance behaviors. Client connected with how behaviors reinforce depression and can impact thought patterns as a result. Introduced distorted thinking patterns to client and provided a distorted thinking self- assessment for him to complete for homework. Risks/Concerns:: Client denies any active suicidal ideations, plan, or intent as of 02/12/20. Client future oriented throughout session. Progress Toward Goals/Plan:: Client appears to be responding well to treatment AEB client sharing more during group sessions, reports decreased suicidal thoughts, and improved ability to engage in activities he previously enjoyed. Client discussed ongoing issues with depression via feeling socially isolated and lonely as well as struggling with anxiety and distorted thoughts about fears of failing to be successful in his future plans for himself. Client will continue IOP tx to improve daily functioning that has been impaired by anxiety and depression, as well as improve mood stability. Time Stopped:: 09:23
--- NOTE | 2020-02-12 09:00 | BH.SGPN.GN ---
Behaviors/Verbalizations/Mental Status: []Client alert and oriented, casual dress, hygiene tended to. Eye contact good. Motor activity appropriate. Speech within normal limits. Affect constricted, mood euthymic. Thoughts linear, logical, no signs of hallucinations or delusions. Client Response/Progress/Benefit: []Pt responded well to session as evidenced by pt listening attentively to others and openly sharing thoughts and feelings. Pt reported yesterday was a heavy emotional day for him. Pt shared he spent some time reflecting on his symptoms prior to IOP. Pt stated it was emotional because able to see how severe his symptoms were especially with significant thoughts of . Pt reported since starting IOP his thoughts of have significantly decreased. Pt reported a mental health positive is being able to recognize progress within himself. Pt stated additional mental health positive was having a me day after IOP yesterday in which he just relaxed and focused on rest. Pt reported current stressor is not being able to see his girlfriend for the past month due to having to quarantine because of the coronavirus. Pt to continue IOP to increase healthy coping, challenge distorted thoughts and prevent decompensation. Narrative Note: []
--- NOTE | 2020-02-12 10:11 | BH.SGPN.GN ---
Behaviors/Verbalizations/Mental Status: []Pt eye contact good, casually dressed, motor activity appropriate, speech normal rate and tone, mood anxious, dysthymic, congruent affect, thoughts linear and intact, no evidence of delusions or hallucinations. Client Response/Progress/Benefit: []Client was a semi-active participant AEB completing worksheet, providing some input, and listening attentively to peers. Remained mostly passive throughout. Client did well to work with the group to define anger and its causes, as well as the potential consequences of unhealthy management of anger. These included: losing relationships, guilt, damaged property, increased rumination, and other?s avoiding us. He nodded as others personal examples regarding how their anger response has negatively impacted them in the past. Worked with group to review common anger responses and shared that his common anger responses include: ignoring others, isolating, sarcasm, getting defensive, and cursing. Identified this is impacting his ability to effectively communicate with his supports. Client appeared to benefit from psychoeducation on the negative impacts of unmanaged anger and increasing self-awareness of own anger signs. Progress noted as client reports increased ability to implement self-care skills as well as improved mood. Will continue IOP tx to prevent decompensation, promote healthy change behaviors, reduce distorted thought patterns, and improve mood stability. Narrative Note: []
--- NOTE | 2020-02-12 11:08 | BH.SGPN.GN ---
Behaviors/Verbalizations/Mental Status: []Client alert and oriented, casually dressed and groomed. Eye contact good. Motor activity appropriate. Speech within normal limits. Affect congruent, mood euthymic. Thoughts linear, logical, no signs of hallucinations or delusions. Client Response/Progress/Benefit: []Client was an engaged participant throughout group AEB client providing input throughout discussion. Client contributed to the continued discussion of how people express anger as well as the underlying emotions of anger. Client reported his underlying emotions to anger often include; stressed, overwhelmed, confused, wronged, and feeling like things are unfair. Client helped the group identify common warning signs of anger such as; feeling hot, tense, headaches, and restlessness. Group brainstormed with group healthy coping skills to help manage anger which included: mindfulness, deep breathing, angry dancing, going outside, and progressive muscle relaxation. Client selected angry dancing and venting to a trusted support as his coping skills to manage anger. Client appeared to benefit from brainstorming with the group potential strategies to manage anger in healthy ways. Recommended continued IOP tx to prevent decompensation, improve mood stability, and further increase healthy coping skills. Narrative Note: []
--- NOTE | 2020-02-17 10:17 | BH.SGPN.GN ---
Behaviors/Verbalizations/Mental Status: []Client alert and oriented, neatly dressed and groomed. Eye contact good. Motor activity appropriate. Speech within normal limits. Affect constricted, mood euthymic. Thoughts linear, logical, no signs of hallucinations or delusions. Client Response/Progress/Benefit: []Client receptive of session, engaged throughout. He did well to work with the group to reflect on the quote and discussed the ways in which perspective can impact mental health and one's outlook on stressors. Client shared his mood impacts his perspective and he shared like when you're happy you're positive, and when you're depressed you're negative. Contributed to group discussion on how one develops perspective. Client worked with group to identify how negative perspective can impact mental health which included: unrealistic expectations, self-sabotage, maintain depression and anxiety, overgeneralizing, increased distorted thoughts, and decreased self-confidence. Client shared having a positive or open-minded perspective can help a person overcome challenges and break out of unhealthy maintenance cycles. Client appeared to benefit from increasing understanding of mental health benefits of a positive perspective and potential consequences to progress when perspective is negative. Progress noted in client's report of reduced thoughts of . Will continue IOP tx to promote use of healthy coping skills, reduce depressive symptoms further, and improve mood stability. Narrative Note: []
--- NOTE | 2020-02-17 11:17 | BH.SGPN.GN ---
Behaviors/Verbalizations/Mental Status: []Client alert and oriented, casual dress, hygiene tended to. Eye contact poor. Motor activity appropriate. Speech within normal limits. Affect flat, mood anxious and depressed. Thoughts linear, logical, no signs of hallucinations or delusions. Client Response/Progress/Benefit: []Client responded well to session, attentive and engaged throughout session. Group shared that if one does not recognize their strengths, it could lead to increased mental health symptoms, and giving up on goals. Client able to identify personal strengths he possesses which includes: patience, intelligence, logic, loves to learn, and good sense of humor. Client reported he has struggled with identifying personal strengths because has viewed himself in a negative way for a long time. Client connected with a peer that he feels conceited when identifies his positives. Seemed to benefit from learning about difference between grandiose and confidence. Appeared to benefit from recognizing personal strengths and identifying strategies to increase recognition of strengths. Will continue IOP tx to prevent decompensation, decrease depressive symptoms and reduce negative thinking. Narrative Note: []
--- NOTE | 2020-02-18 09:06 | BH.SGPN.GN ---
Behaviors/Verbalizations/Mental Status: []Client alert and oriented, appropriately groomed and casual in appearance. Eye contact fair to good. Motor activity appropriate. Speech within normal limits. Affect congruent, mood anxious, euthymic. Thoughts linear, logical, no signs of hallucinations or delusions. Reviewed daily symptom tracker and client denies suicidal ideation, plan, or intent at this time. Client Response/Progress/Benefit: []Client actively engaged in session AEB attentively listening to others and openly processing with the group. Reported emotion for the day is ?content? and indicated that this is due to feeling as though he is making consistent progress in treatment and in managing his mental health sx. Client did well to identify current mental health wins and indicated that one win is continuing to have daily ?casual mental health check-ins? with his mom. Expressed this has kept him aware of his own emotions as well as allowed for increased connection with his mom. Client indicated that another win is making some progress in ?fighting off those feelings of being distant?. He shared that he was able to do so by taking time to practice some grounding skills via cooking. Noted his stressor for the day is going to do yard work at his grandmother?s house as he is lacking motivation to do so. Appeared to benefit from group support and structure. Recommended continued tx to increase mood stability, improve coping repertoire, and prevent decompensation.? Narrative Note: []
--- NOTE | 2020-02-18 09:06 | BH.SGPN.GN ---
Behaviors/Verbalizations/Mental Status: []Client alert and oriented, appropriately groomed and casual in appearance. Eye contact good. Motor activity appropriate. Speech within normal limits. Affect congruent, mood anxious, dysthymic. Thoughts linear, logical, no signs of hallucinations or delusions. Reviewed daily symptom tracker and client denies suicidal ideation, plan, or intent at this time. Client Response/Progress/Benefit: []Pt receptive of session, engaged throughout AEB listening to others share, nodding when agreeing or able to relate, and openly processing with the group. Identified emotion for the day as ?tired? as he has been struggling with sleep over the past several days. Pt did well to identify current mental health wins and indicated that one win was using opposite action to challenge himself to practice some mindfulness via gardening. Expressed feeling more positive as a result. Pt noted that another win is being able to open up more to his mother about his mental health which is something he has avoided in the past. Expressed that a current stressor is ?feeling more distant and disconnected. Receptive of mindfulness grounding suggestions provided by fellow participants. Appeared to benefit from group support and identifying areas of progress as well as problem solving current stressor. Recommended continued IOP tx to further promote healthy change behaviors, maintain stability, and prevent decompensation.?? Narrative Note: []
--- NOTE | 2020-02-18 10:15 | BH.SGPN.GN ---
Behaviors/Verbalizations/Mental Status: []Client alert and oriented, casually dressed and groomed. Eye contact good. Motor activity appropriate. Speech within normal limits. Affect constricted, mood euthymic. Thoughts linear, logical, no signs of hallucinations or delusions. Client Response/Progress/Benefit: []Client responded well to session, attentive and providing input to discussion. Client reported he connects with quote reporting ?you sometimes have to risk hurting others to take care of yourself.? Client agreed with peers that without healthy boundaries, one?s mental health with worsen. Group identified the benefits to setting boundaries as well as the consequences of not setting healthy boundaries. Participated in the discussion of benefits of setting boundaries which included; feeling happier, less negative thinking, avoidance of toxic people, and ability to manage mental health better. Client engaged during discussion of the different types of boundaries and able to identify examples of each. Client also helped the group recognize the consequences of not having healthy boundaries for each type. Client seemed to benefit from increased awareness of how poor boundaries can negatively impact mental health. Progress noted in client?s increased participation in group and self-report of reduced depressive symptoms. Will continue IOP tx to promote mood stability, further decrease depression, and improve daily functioning. Narrative Note: []
--- NOTE | 2020-02-18 11:17 | BH.SGPN.GN ---
Behaviors/Verbalizations/Mental Status: []Client alert and oriented, casually dressed and groomed. Eye contact good. Motor activity appropriate. Speech within normal limits. Affect constricted, mood euthymic. Thoughts linear, logical, no signs of hallucinations or delusions. Client Response/Progress/Benefit: []Client responded well to session, actively contributing during discussion and making connections during the activity. Client engaged in the boundary self-assessment activity and participated in discussion to process the activity. Client connected with others who reported they struggle to open up to supports. Client shared he used to be even more closed off to people, but coming to IOP and processing through stressors in his life has helped client reach out to supports. Client attentive during psychoeducation on the boundary setting styles and he shared belief he uses the rigid and flexible boundary setting styles. Client stated he has not always been able to verbalize his emotions due to past negative experiences, but now he sees that this reinforces depression. Client shared he has been trying to become more flexible by sharing his emotions during group and with his close supports. Progress noted in client?s report of reduced isolation and application of opposite action. Will continue IOP tx to promote use of healthy coping skills, further decrease depression, and improve functioning. Narrative Note: []
--- NOTE | 2020-02-19 09:01 | BH.SGPN.GN ---
Behaviors/Verbalizations/Mental Status: []Client alert and oriented, casual dress, hygiene tended to. Eye contact fair. Motor activity appropriate. Speech within normal limits. Affect could not be assessed due to requirement of needing to wear a mask to prevent spread of COVID-19. mood euthymic. Thoughts linear, logical, no signs of hallucinations or delusions. Client Response/Progress/Benefit: []Pt responded well to session AEB pt sharing thoughts and feelings openly with group and listening attentively to peers. Pt stated his current stressor is his girlfriend getting into arguments with her parents about the quarantine. Pt reported he is stressed that he can't be there to physically support her. Pt reported mental health positive as continuing to not have thoughts of . pt stated since coming to IOP he realizes he has worth. Pt stated additional mental health positive as having learned many coping skills and noticing his mood is improving. Progress noted with pt reporting improved mood and decreased thoughts of . Pt to continue IOP level of care to continue use of healthy coping skills, challenge negative thoughts and prevent decompensation. Narrative Note: []
--- NOTE | 2020-02-19 11:18 | BH.SGPN.GN ---
Behaviors/Verbalizations/Mental Status: []Client alert and oriented, casually dressed and groomed. Eye contact good. Motor activity appropriate. Speech within normal limits. Affect constricted, mood depressed. Thoughts linear, logical, no signs of hallucinations or delusions. Client Response/Progress/Benefit: []Client responded well to session, often nodding during discussions and providing insight to discussion. Client shared with the group his barriers for making the changes he identified in the previous group. These barriers included; denial that there is a problem, avoidance, not wanting to change, and rationalizing why he does not need to change. Client did well to select one change he would like to make and identifying a SMART goal to help client make this change. Shared he wants to work on improving his physical health. Discussed that this change would help client feel better mentally and physically. Client?s goal was to exercise for ten minutes each day and to cut down on video games. Client benefited from working with group to identify strategies to overcome barriers to change and create a plan for implementing one small change promoting personal growth. Client recommended to continue IOP tx as client continues to struggle with mood instability, negative thinking, and daily functioning. Narrative Note: []
--- NOTE | 2020-02-19 11:18 | BH.SGPN.GN ---
Behaviors/Verbalizations/Mental Status: []Client alert and oriented, casually dressed and groomed. Eye contact fair to good. Motor activity appropriate. Speech within normal limits. Affect congruent to topic being discussed, mood depressed and anxious. Thoughts linear, logical, no signs of hallucinations or delusions. Client Response/Progress/Benefit: []Pt semi-active participant AEB providing some input throughout discussion, taking notes, and actively listening. More passive throughout discussion unless prompted. Pt participated in group discussion regarding mental health benefits of change which included personal growth, increased confidence, a ?fresh start?, and improved mental health. Pt identified small personal changes to improve mental health as: become more physically active, improve his sleep schedule, and more actively engage in activities he has enjoyed in the past such as writing and cooking. Identified current barriers keeping pt from making those changes to be: lack of motivation, habit, and negative thoughts. Pt appeared to benefit from gaining awareness of personal changes that would improve mental health and the barriers keeping client stuck. Progress noted in increased insight of barriers and areas for change for improved mental health and improved skill application. Continue IOP to increase healthy coping skills, reduce anxiety and depression, and prevent decompensation. Narrative Note: []
--- NOTE | 2020-02-19 16:36 | BH.MDN_ITS ---
Multi-Disciplinary Note - Note 45-min Individual Time Started:: 09:18 Date: 02/19/20 Purpose of session/treatment goals addressed:: The purpose of this session was to address current symptoms, stressors, and application of coping skills. Another goal was to challenge and reframe distortions reinforcing anxiety, depression, and effecting client self-esteem. Eye Contact:: Good Motor Activity:: Appropriate Appearance:: Casual Speech:: Appropriate, Other - shaky Mood:: Anxious, Depressed Affect:: Congruent Thoughts:: Linear, Logical, No evidence of hallucinations/delusions noted Staff Interventions:: Therapist used active listening and open-ended questions to gather client's current symptoms, stressors, and triggers to most recent increase in anxiety and self-deprecation. Therapist provided supportive feedback and emotion validation while aiding client in processing a recent trigger impacting his mental health. Assisted client in identifying the cognitive distortions that were reinforcing depressive and anxious cycles and begin challenging these thoughts. Therapist provided psychoeducation on the benefits of practicing positive self-talk to combat negative belief about self and begin improving overall confidence levels. Therapist gave client homework to practice thought challenging and begin keeping a ?credit journal? to reflect on the things he did well each day. Client Response:: Client responded well to session, open to meeting with therapist. Client shared he has been struggling since yesterday evening following a conversation with his girlfriend and her mother. Client reported he had become triggered as the tone of the conversation shifted from calm to more intense due to his girlfriend and her mother arguing. Pt expressed that he often struggles with significant anxiety when encountering conflict, regardless of whether or not he is engaged in the discussion. Expressed struggling with significantly increased anxiety following the discussion. Reports beginning to feel as though this means he has regressed and experienced increased self- deprecation as a result. With further discussion and thought challenging, Client did well to identify his expectations of progress may have bene unrealistic and with reflection identified areas in which he applied healthy coping skills to manage his anxiety. This included finding something else to focus on rather than ruminating and taking deep breaths. Client stated he has a hard time giving himself credit, accepting compliments, and acknowledging strengths. Client reported his negative thoughts are often in the forefront of his mind when feeling he did not accomplish something as desired. Client identified his self- doubt language further reinforces depression and shared wanting to work further on this area. Receptive to practicing thought challenging and identifying small accomplishments each day. Risks/Concerns:: Client denies any suicidal ideations, plan, or intent as of 02/19/20. Progress Toward Goals/Plan:: Client is demonstrating progress towards treatment goals as shown by his report of reduced depression and avoidance. Client has also been showing positive strides to manage his depression, as client engaged his mother in more open conversation regarding his mental health and has been making efforts to continue to engage more consistently in healthy activities such as cooking, reading, and writing. However, client currently reports an increase in anxiety and anxious thoughts from a trigger that happened yesterday. Receptive to continuing to face anxious situations and work on challenging and reducing distorted thoughts. Client will continue IOP tx to improve daily functioning that has been impaired by anxiety and depression, prevent further decompensation, and improve ability to combat distortions. Time Stopped:: 10:03
--- NOTE | 2020-02-24 09:03 | BH.SGPN.GN ---
Behaviors/Verbalizations/Mental Status: []Client alert and oriented, casual dress, hygiene tended to. Eye contact good. Motor activity appropriate. Speech within normal limits. Affect could not be assessed due to all pt's being required to wear a mask to decrease potential spread of coronavirus. mood euthymic. Thoughts linear, logical, no signs of hallucinations or delusions. Reviewed client?s symptom tracker, pt denies current suicidal thoughts or intention to date. Client Response/Progress/Benefit: []Pt responded well to session AEB pt sharing thoughts and feelings and listening attentively to peers. Pt identified mental health positive as going to his grandma's house over the weekend to help work in her garden. Pt stated it was positive to spend time with her and catch up. Pt reported additional mental health positive as starting to work on writing his story. Pt stated he hasn't been engaging in writing because had lost interest, but when he wrote yesterday it made him feel excited and happy. Pt stated current stressor is needing to quarantine still due to the coronavirus. Progress noted with pt increasing engagement in activities he used to enjoy. Pt to continue IOP to continue use of healthy coping, challenge negative thoughts and prevent decompensation. Narrative Note: []
--- NOTE | 2020-02-24 10:15 | BH.SGPN.GN ---
Behaviors/Verbalizations/Mental Status: []Client alert and orient. Appearance casual and appropriately groomed. Speech an appropriate rate and tone, limited input. Motor activity WNL. Mood anxious, affect congruent to mood. No evidence of delusion or hallucinations.? Client Response/Progress/Benefit: []Pt receptive of session, actively listening throughout the discussion though mostly passive in participation. Worked with the group to define healthy communication and it?s various attributes. Pt listened as the group discussed benefits of healthy communication on mental health and maintaining healthy relationships which included: improved mood, increased ability to get your point across, needs are more likely to be met, and healthier relationships. Group additionally discussed potential barriers to communication including: shutting down, vagueness, fear of judgement, and past negative experiences. Pt receptive of and appeared to benefit from psychoeducation portion discussing different styles of communication. Provided examples at times. Pt noted identifying most with passive communication and indicated he has been making an effort to be more assertive. Explained that increased assertive communication has resulted in improved relationship with his mother. Progress noted in increased insight into personal communication styles and barriers. Pt to continue in IOP tx to promote healthy change behaviors, improve mood stability, and prevent decompensation. Narrative Note: []
--- NOTE | 2020-02-24 11:16 | BH.SGPN.GN ---
Behaviors/Verbalizations/Mental Status: []Client alert and oriented, casual dress, hygiene tended to. Eye contact good. Motor activity appropriate. Speech within normal limits. Affect-unable to gather because wearing a mask, mood dysthymic. Thoughts linear, logical, no signs of hallucinations or delusions. Client Response/Progress/Benefit: []Client responded well to session AEB client listening attentively to others and providing input during discussion. Client further processed his communication style and ways in which being passive has impacted client. Client reflected on how his communication with supports has improved since starting IOP. Client shared his emotional boundaries are less rigid with his supports, so client is more open to sharing feelings and concerns with his support system. Client worked with group to identify strategies to improve communication. Client listened attentively as the group reviewed the strategy DEAR MAN which is a technique to help individuals communicate needs more effectively. Client shared he has been working on being more direct with his supports and responsive when they ask questions. Client receptive to selecting one of the DEAR MAN strategies for homework to improve communication. Client to continue IOP tx to further decrease depressive symptoms, increase confidence, and improve mood stability. Narrative Note: []
--- NOTE | 2020-02-25 09:04 | BH.SGPN.GN ---
Behaviors/Verbalizations/Mental Status: []Client alert and oriented, appropriately groomed and casual in appearance. Eye contact good. Motor activity appropriate. Speech within normal limits. Affect congruent, mood anxious, euthymic. Thoughts linear, logical, no signs of hallucinations or delusions. Reviewed daily symptom tracker and client denies suicidal ideation, plan, or intent at this time. Client Response/Progress/Benefit: []Client engaged in session AEB attentively listening to others and openly processing with the group. Reported emotion for the day is ?distant but hopeful? and indicated that this is due to continuing to make progress in improving overall self-awareness levels which has helped to prevent sx escalation. Expressed however that he has been struggling with feeling somewhat ?checked-out? and distant the past few days. He did well to identify strategies for grounding and feeling ?more present? such as cooking and sitting outside to practice mindfulness. Client able to identify current mental health wins and indicated that one win is being able to recognize his warning signs and ?work through them using mindfulness and grounding skills?. Shared feeling proud of himself and more hopeful as a result. Client indicated that another win is making an effort to continue to reach out to friends and family. Appeared to benefit from group support and structure. Progress in decreased depression and improved skill application. Recommended continued tx to increase mood stability, reduce depression, and prevent decompensation.? Narrative Note: []
--- NOTE | 2020-02-25 10:13 | BH.SGPN.GN ---
Behaviors/Verbalizations/Mental Status: []]Client alert and oriented, casually dressed and appropriately groomed. Eye contact good. Motor activity appropriate. Speech WNL. Affect constricted, mood dysthymic. Thoughts linear, logical, no signs of hallucinations or delusions. Client Response/Progress/Benefit: []Client active participant as evidenced by providing input throughout discussion and taking notes during psychoeducation. Client frequently nodded during discussion and agreed with peers that distortions can feel ?so real because they?ve happened for so long.? Client connected with the discussion about how distorted thought patterns can reinforce mental health symptoms and impact relationships. Client noted that he connects with black and white thinking, mental filter, and overgeneralizing. Client gave an example of overgeneralizing and shared ?if I didn?t cook something right I?d tell myself I mess up every time.? Which would then result in client giving up on cooking. Client stated he now can challenge this thought, and he has been continuing to cook even when he messes up. Client shared it takes awareness and practice to change distorted thinking. Appeared to benefit from increasing awareness of cognitive distortions and how they can impact emotions and behaviors. Will continue IOP tx to further decrease negative thinking and improve mood stability. Narrative Note: []
--- NOTE | 2020-02-26 09:39 | BH.MDN_ITS ---
Multi-Disciplinary Note - Note 45-min Individual Time Started:: 09:20 Date: 02/26/20 Purpose of session/treatment goals addressed:: The purpose of this session was to address current symptoms, stressors, and application of coping skills. Another goal was to review homework and provide information on negative core beliefs. Provided positive self-talk homework. Eye Contact:: Good Motor Activity:: Appropriate Appearance:: Casual Speech:: Appropriate Mood:: Anxious, Dysthymic Affect:: Congruent Thoughts:: Linear, Logical, No evidence of hallucinations/delusions noted Staff Interventions:: Therapist used active listening and open-ended questions to gather client's current symptoms, stressors, and triggers to recent influx in depressive sx. Therapist provided supportive feedback and emotion validation while aiding client in processing a recent trigger impacting his mental health. Provided psychoeducation on negative core beliefs. Assisted client in identifying self-deprecation and negative core beliefs reinforcing depression. Therapist reviewed pt?s homework and the benefits of practicing positive self- talk. Therapist gave client homework to practice saying encouraging statements to himself in the mirror. Client Response:: Client responded well to session, open to meeting with therapist. Client shared he has been doing better to manage anxiety related symptoms; however, continues to struggle with feeling distant and disconnected. Client attributes this partially to inconsistent sleep as he reports often waking multiple times throughout the night. Reviewed sleep hygiene routine and pt reports adhering to recommendations for good sleep. Noted feeling he does not do much during his day outside of menial tasks or chores for his family such as taking out the trash or moving boxes from the basement. Receptive of discussion on how not engaging himself intellectually during the day could impact feelings of being distant and lack of sleep. Additionally, shared that a miscommunication with his girlfriend had resulted in client experiencing increased rumination, guilt, and a ?bad depressive episode?. Explained feeling as though his girlfriend has been ?making excuses not to see me lately? which increased ne gative thoughts and pt believing ?I?m an inconvenience?, ?I am just going to ruin things?, and ?I don?t deserve to be happy?. Shared initially shutting down and struggling to discuss these thoughts and feelings with his girlfriend, however recognized the importance of communicating his needs and successfully expressed his concerns. Noted doing so helped to reduce negative thoughts in the moment but that he continued to struggle with self-deprecation afterward. Expressed often feeling guilty when he experiences increased mental health sx and shared beliefs this means he is regressing. Worked with client to challenge these thoughts. Client was receptive of psychoeducation provided on negative core beliefs and the impact they have on maintaining depression and increasing self-deprecating language. Discussed that he has always struggle with thoughts of not being ?good enough? or deserving things that others have. Receptive to practicing thought challenging to begin reducing impact of these thoughts on current mood. Additionally, pt discussed that beginning to keep a daily accomplishments journal has helped increase self-esteem and feelings of pride over the past week. Able to connect with how focusing on accomplishments and beginning to shift self-talk to more positive language can aid in improving confidence. Receptive of being introduced to personal bill of rights and open to begin saying 1-2 of the rights to himself in the mirror daily. Risks/Concerns:: Client denies any suicidal ideations, plan, or intent as of 02/26/20. Progress Toward Goals/Plan:: Client is demonstrating continued progress towards treatment goals as shown by his report of continued application of treatment skills learned including: reaching out to supports, mindfulness, and opposite action. Client has also reported no suicidal thoughts since beginning the program. He does however report an increase in depressive sx yesterday due to relationship tension, but did well to speak with his girlfriend regarding the issue and come to a resolution. Reports ongoing difficulties in challenging negative self-talk and distortions impacting beliefs about self. Client will continue IOP tx to improve daily functioning that has been impaired by anxiety and depression, prevent further decompensation, and improve ability to combat distortions.
--- NOTE | 2020-02-26 10:14 | BH.SGPN.GN ---
Behaviors/Verbalizations/Mental Status: []Client alert and orient. Appearance casual and appropriately groomed. Speech an appropriate rate and tone. Motor activity WNL. Mood anxious and dysthymic, affect congruent. No evidence of delusion or hallucinations. Client Response/Progress/Benefit: []Client responded well to session, attentive and engaged throughout. Participated in group discussion to define conflict and identify differences between internal and external conflict. Group reported the benefits of addressing conflict included: increased self-confidence, increased trust in relationships, having needs be met, and preventing further conflict from arising. Group identified and discussed consequences of not addressing conflict in healthy ways which included: decreased self-esteem, damaged relationships, increased mental health symptoms, and additional stressors developing as a result. Benefited as client was able to identify current conflict style and how it impacts mental health. Noted he often is avoiding or accommodating and that this has negatively impacted self-esteem in past and led to needs not being met. Shared wanting to become more directive in conflict settings. Progress noted as shown by client?s report of improved insight, though he continues to struggle with self-deprecation and avoidance. Will continue IOP tx to promote insight and application of healthy skills, reduce mental health sx severity, and further improve daily functioning. Narrative Note: []
--- NOTE | 2020-02-26 15:52 | BH.MTP_ITS ---
Treatment Plan Review Date of Admission:: 01/27/20 Date of Treatment Plan Review:: 02/26/20 Admitting Diagnoses:: Major depressive disorder recurrent severe without psychosis; generalized anxiety disorder Current Diagnoses:: Major depressive disorder recurrent severe without psychosis; generalized anxiety disorder Patient's Response to Treatment:: Pt has responded well to treatment and is often engaged in both individual and group sessions. Pt provides input to discussion and is able to make connections between materials discussed and mental health sx management in his own life. Since admission, pt has struggled at times with consistently attending, however is making improvements in this area and has become much more consistent in attendance. Completes all homework provided. Reports utilizing skills learned in IOP outside group as well. Provides appropriate feedback. Status of Current Problems and Symptoms: Client is demonstrating continued progress towards treatment goals as shown by his report of continued application of treatment skills learned including: reaching out to supports, mindfulness, and opposite action. Client has also reported no suicidal thoughts since beginning the program. He does however report an increase in depressive sx yesterday due to relationship tension, but did well to speak with his girlfriend regarding the issue and come to a resolution. Reports ongoing difficulties in c hallenging negative self-talk and distortions impacting beliefs about self. Problem #1 Problem Name:: Depression/SI/hopelessness Status of Goals:: Some progress with continued tx encouraged. Pt reports improved ability to engage in activities that he finds enjoyable, as well as improved self-care and healthier communication with himself. Pt is actively engaging in self-care and activities he is passionate about. He has been working to improve self-talk as well as is working with his supports to more consistently challenge himself to implement healthy positive self-talk messages. Although pt is making progress, he continues to struggle with consistency of skill application and distorted thoughts about himself. Team Recommendations:: Continue to work on tx goals, specifically behavior activation and consistent implementation of affirmations in times of increased negative self-talk Problem #2 Problem Name:: Anxiety/panic Status of Goals:: Pt is able to identify calming skills learned in group however struggles with implementing these skills consistently when in overwhelming situations. Can identify triggers as well though struggles to use skills in moments he is experiencing unexpected triggers or external stressors. Team Recommendations:: continue with current plan
== END 2020-02-26 23:59 ==
LOC: BHIOP 09:00
PROVIDERS: Referring Provider Psychiatry & Neurology Psychiatry; Visit Provider Psychiatry & Neurology Psychiatry
DX: F33.2 Major depressive disorder, recurrent severe without psychotic features (principal); F41.1 Generalized anxiety disorder; Z79.899 Other long term (current) drug therapy
CPT/HCPCS: H0035; 90832; 90834; 90853

== ENCOUNTER 2020-03-02 09:00 | Outpatient (RCR) | payer OTHER, SELFPAY ==
--- NOTE | 2020-03-02 09:15 | BH.SGPN.GN ---
Behaviors/Verbalizations/Mental Status: []Client alert and oriented, casual dress, hygiene tended to. Eye contact good. Motor activity appropriate. Speech within normal limits. Affect constricted, mood anxious. Thoughts linear, logical, no signs of hallucinations or delusions. Reviewed client?s symptom tracker, pt denies current suicidal thoughts or intention to date. Client Response/Progress/Benefit: []Pt responded well to session AEB pt openly sharing thoughts and feelings as well as listening attentively to peers. Pt reported currently feeling stressed about finances because has several bills due and still waiting on money to come from the government. Pt stated a mental health positive as challenging his anxious thoughts about financial anxiety, encouraging himself to focus on what is in his control. Pt reported additional positive as trying to focus on improving his health by cutting out pop and restricting how much processed food he consumes. Progress noted with pt consistently applying healthy skills. Pt to continue IOP to continue healthy coping, challenge distorted thoughts and prevent decompensation. Narrative Note: []
--- NOTE | 2020-03-02 10:23 | BH.SGPN.GN ---
Behaviors/Verbalizations/Mental Status: []Client alert and orient. Appearance casual and appropriately groomed. Speech an appropriate rate and tone. Motor activity WNL. Mood anxious and euthymic, affect congruent. No evidence of delusion or hallucinations. Client Response/Progress/Benefit: []Pt receptive to session, participating throughout. Provided input as the group brainstormed the positive and negative aspects of stress on physical and mental health. Shared on the quote about stress: If it?s something you can?t control, being able to control one thought over the other can help recognize that ruminating on the thought can have negative impacts on mental health. Group worked together to define stress and noted that stress is: Anxiety, feeling overwhelmed, discomfort, pressure, or a feeling of being under pressure to meet expectations of self or others. Group did well to identify that the benefits of stress include: motivates us, heightened senses/focus, and keeps us safe. Identified personal impacts of too much stress as: fatigue, poor concentration, difficulty connecting with others, and negative thoughts. Client identified current stressors as: daily tasks, not working, negative thoughts, physical and mental health, COVID-19, *finances, *anniversary dates, and ongoing grief. Client reports belief that the level of their stress jar is ?pretty full but not overflowing? Expressed that it is getting close to ?full? but that he is getting better at identifying and managing stressors as they occur but feels he can continue to grow in this area. Progress in ongoing skill application and reports of reduced depression/anxiety. Recommended to continue IOP tx to improve healthy coping skill application, reduce mental health sx, and prevent decompensation. Narrative Note: []
--- NOTE | 2020-03-02 11:21 | BH.SGPN.GN ---
Behaviors/Verbalizations/Mental Status: []Client alert and oriented, neatly dressed and groomed. Eye contact fair. Motor activity appropriate. Speech within normal limits. Affect flat, mood dysthymic. Thoughts linear, logical, no signs of hallucinations or delusions. Client Response/Progress/Benefit: []Client engaged participant in session as evidenced by client listening attentively to others and providing input during session. Client worked with the group to further review ways in which unmanaged stress can manifest. Client reported when he does not manage his stress well client is angry, crying, and exhausted. Client contributing during discussion about the 4 A's of managing stress. Client able to give different strategies for all the A's and connect it back to his life. Client wants to work on managing his stressor of finances. Client reported he wants to practice the acceptance skill to manage his financial stress. Client plans to do this by practicing self-talk and reminding himself ?I can?t control this, but it will all be alright in the end.? Client shared this will help him because he tends to worry about things out of his control rather than focusing on what he can do. Client seemed to benefit from increased awareness of the impact of stress on mental health and increasing repertoire of stress management strategies. Progress noted as client has been reporting active use of thought challenging and reports overall less stress. However, client continues to report a depressed mood, ruminations, and low self-esteem. Narrative Note: []
--- NOTE | 2020-03-03 09:02 | BH.SGPN.GN ---
Behaviors/Verbalizations/Mental Status: []Client alert and oriented, casual dress, hygiene tended to. Eye contact good. Motor activity appropriate. Speech within normal limits. Affect congruent, mood slightly sad. Thoughts linear, logical, no signs of hallucinations or delusions. Reviewed client?s symptom tracker, pt denies current suicidal thoughts or intention to date. Client Response/Progress/Benefit: []Pt responded well to session AEB pt sharing thoughts and feelings openly and listening attentively to peers. Pt reported mental health positive as receiving his money from the government yesterday so he could pay off his bills which he stated has decreased his stress significantly. Pt identified additional mental health as helping his family problem solve yesterday about how to keep their baby chickens safe from whatever animal is attacking them. Pt stated it felt positive to be able to utilize his problem solving skills. Pt stated currently stressed that today is his younger brother that birthday. Pt reported he is grieving today, but feels able to manage it. Pt to continue IOP level of care to maintain gains, continue use of healthy coping, and prevent decompensation. Narrative Note: []
--- NOTE | 2020-03-03 10:16 | BH.SGPN.GN ---
Behaviors/Verbalizations/Mental Status: []Eye contact is good. Motor activity is appropriate. Appearance is casual. Speech is Appropriate. Mood is dysthymic and anxious. Affect is constricted. Thoughts are linear and logical. No evidence of psychosis. Client Response/Progress/Benefit: [] Participated throughout group discussion, providing some limited input throughout and listening attentively. Mostly passive participation. Engaged during psychoeducation portion reviewing fixed mindset. Pt worked with group to identify how a fixed mindset can impact our mental health which included: decreased motivation, giving up when faced with a setback, not asking for help, low self-esteem, and isolation/avoidance. Pt identified one fixed thought he has is, I fail at everything?. Pt did well to recognize that this fixed thought leads to hopelessness, increased anxiety and depression. Recognized that this fixed thought has resulted in shutting down, not trying new things or reaching out, and avoidance in the past. Benefited from group by increasing awareness of how one's mindset impacts mental health. Pt to continue IOP level of care to increase utilization of healthy coping skills, challenge distorted thoughts, and prevent decompensation. Narrative Note: []
--- NOTE | 2020-03-03 11:20 | BH.SGPN.GN ---
Behaviors/Verbalizations/Mental Status: []Client alert and oriented, neatly dressed and groomed. Eye contact fair. Motor activity appropriate. Speech within normal limits. Affect unable to gather due to client wearing a mask as part of COVID-19 protocol. mood euthymic. Thoughts linear, logical, no signs of hallucinations or delusions. Client Response/Progress/Benefit: []Client engaged during discussion and listened attentively to peers. Watched the video on growth mindset versus fixed mindset and participated in discussion. Client did well to apply cognitive restructuring to reframe previously identified fixed thoughts, transforming his fixed thought from previous group to a growth thought of ?I can work at things I've failed at and improve them.? Client stated having a growth mindset makes client's confidence and self-esteem improve. Benefitted from discussing benefits of growth mindset and brainstorming strategies for prompting growth-mindset. Will continue IOP tx to further decrease intensity of symptoms and increase emotional regulation skills. Narrative Note: []
--- NOTE | 2020-03-04 09:06 | BH.SGPN.GN ---
Behaviors/Verbalizations/Mental Status: []Client alert and oriented, casual dress, hygiene tended to. Eye contact good. Motor activity appropriate. Speech within normal limits. Affect congruent, mood euthymic. Thoughts linear, logical, no signs of hallucinations or delusions. Reviewed client?s symptom tracker, pt reports SI as a 1/5 which is consistent with his baseline, denies current intention to date. Client Response/Progress/Benefit: []Pt responded well to session AEB pt sharing thoughts and feelings openly and listening attentively to peers. Pt appeared to connect with fellow participants. Pt reported mental health positive as being able to take positive steps towards finding healthy ways to grief his brother?s memory yesterday. Pt identified additional mental health win as making plans to spend time on self-care via writing a story he has been working on. Pt stated it felt positive to be able to make time for processing his emotions yesterday and felt more confident in his ability to continue to move through the grieving process in healthy ways. Pt stated current stressor is lingering grief, reported having a self-care plan to address this as well. Pt to continue IOP level of care to improve depression and anxiety management, continue to improve consistent use of healthy coping, and prevent decompensation. Narrative Note: []
--- NOTE | 2020-03-04 15:48 | BH.MDN_ITS ---
Multi-Disciplinary Note - Note 60-min Individual Time Started:: 10:47 Date: 03/04/20 Purpose of session/treatment goals addressed:: The purpose of this session was to address current stressors, symptoms, and application of healthy coping skills since last session. Another goal was to review homework and identify a small goal aimed at challenging negative core beliefs. Additional topics included: emotion regulation skills, identifying and challenging distortions. Eye Contact:: Good Motor Activity:: Appropriate Appearance:: Casual Speech:: Appropriate Mood:: Anxious, Depressed Affect:: Congruent Thoughts:: Linear, Logical, No evidence of hallucinations/delusions noted Staff Interventions:: Therapist used active listening and open-ended questions to explore client's current stressors, symptoms, and application of coping skills. Therapist provided empathic responses and commended pt as he discussed use of distress tolerance skills when struggling with self-harm urges. Aided pt in processing the events surrounding self-harm urges and used [place] techniques to assist pt in challenging associated distortions and identify healthy alternative to self-harming. Therapist and pt reviewed homework from prior session and discussed the importance of self-talk in building current confidence levels. Assisted pt in creating a small goal for continued progress in this area. Client Response:: Client responded well to session, open to meeting with therapist. Client reports that since last session ?things have been okay?. Went on to explain that in the current moment he is feeling ?really good?, however earlier in the week struggled with ?a pretty significant depressive episode?. Shared that this had been related to misinterpreting his girlfriend?s behaviors while she had been visiting. Provided insight regarding use of absolute thinking and personalization when struggling with thoughts of ?Everything is your fault? ?and if she really loved you, she?d be up here with you right now and not downstairs talking to mom?. Pt reports that in the moment he struggles with recognizing and challenging distortions, often using distraction as a means of coping instead. Expressed that when his depression ?gets really bad? it is d ifficult to ?remind myself of how to come out of it? and has resulted in self- harming behaviors such as scratching his arms. Pt expressed a desire to do so when struggling with negative thoughts earlier in the week. He provided insight that although self-harming behaviors are tempting as he feels ?more in control? and ?more in the present?, he knows that these only reinforce depressive sx, impact others around him, and prevent him from making progress with managing emotions in healthy ways. Receptive of discussion regarding importance of consistent practice in using thought challenging and positive self-talk to reduce use of distorted thinking patterns which impact his depression and confidence levels. Pt and therapist spent remainder of session reviewing his homework to read through the Personal Bill of Rights worksheet and pick 2-3 personal rights to state out loud in front of the mirror. Expressed feeling slightly uncomfortable in doing so but felt he was able to complete the prompt without problem. Went on to identify that he has found it is more difficult to believe he has the right to things when told otherwise or challenges by someone on this. Pt expressed that in the past he has struggled to advocate for his own needs out of fear of confrontation. Willing to work with this therapist to identify small steps for further improving his self-worth by beginning to work on self-advocacy. Reports plan to practice this by having his girlfriend tell him false negative comments in which he will challenge by saying ?No? and asserting what he deserves. Risks/Concerns:: Client denies any suicidal ideations, plan, or intent as of 03/04/20. Progress Toward Goals/Plan:: Client continues to show variable progress towards treatment goals as his mental health and emotion regulation is often dependent on external situations, specifically that which is related to his relationship with his girlfriend. Pt has some insight into this and is making progress in identifying and challenging distorted thoughts continuing to maintain externalization. He often struggles with application of these skills in the moment and tends to avoid addressing the issue at hand through distraction instead. Pt is however making progress with challenging unrealistic expectations of self regarding employment and reports more consistent use of self-compassion. Pt is also reporting increased communication with supports which has contributed to improving his mood as well. Will continue IOP tx to promote mood stability, improve healthy emotional regulation skills, improve self-confidence, and prevent decompensation. Time Stopped:: 12:02
--- NOTE | 2020-03-09 09:10 | BH.SGPN.GN ---
Behaviors/Verbalizations/Mental Status: [] Eye contact is good. Motor activity is appropriate. Appearance is casual. Speech is Appropriate. Mood is depressed. Affect is flat. Thoughts are linear and logical. No evidence of psychosis. Reviewed daily check in sheet and no reports of suicidal ideations or intent. Client Response/Progress/Benefit: [] Pt was an active participant in group discussion. Daily check in tracker notes 2/5 for anxiety and panic. 3/5 for hopelessness. Emotion for to day is depressed but hopeful. Shared with the group that he was depressed for a majority of the day yesterday. Notes feelings of hopelessness related to his future and ruminating on past mistakes. [place] like a failure as he has not been able to keep a job. He was proud of himself for utilizing thought-reframing. Was able to challenge his negative thoughts with affirmations and awareness of cognitive distortions. He notes that this was the first time I was able to get control over these thoughts. Group provided praise. Progress noted per pt report. Benefited from group support, encouragement, and feedback. Will continue in IOP to maintain safety, improve daily functioning, and stabilize mood. Narrative Note: []
--- NOTE | 2020-03-09 10:16 | BH.SGPN.GN ---
Behaviors/Verbalizations/Mental Status: []Client alert and oriented, casual appearance. Eye contact good. Motor activity appropriate. Speech within normal limits. Affect constricted, mood dysthymic and anxious. Thoughts linear, logical, no signs of hallucinations or delusions. Client Response/Progress/Benefit: []Client connected with the group topic of crisis, providing input and examples, as well as helped to define crisis as an emergency, a last resort, feeling like you?ve run out of options, moved past your warning signs, a moment when you really need help, and ?the red zone?. Group identified examples of potential crises to include: worsening mental health, COVID-19, grief, loss of job, loss of physical functioning, loss of housing, end of relationship, or unexpected change. Client agreed with peers that anything can lead to a crisis. Connected with discussion on how coping with external crises by using unhealthy coping skills could result in a personal crisis. Group identified unhealthy coping skills to include; substance use, distracting with television, avoidance, anger outbursts such as road rage, isolation, or self-harming behaviors. Group reported that it is important to have awareness of warning signs which can prevent reaching crisis point. Group identified warning signs for crisis and Client completed the personal warning signs worksheet. Pt identified personal crisis warning signs to included; loss of interest in hobbies, feeling disconnected from others, and unusual decline in functioning. Benefited by increasing awareness of crisis and personal warning signs. Progress noted in client?s report of practicing increased self-care and thought challenging more consistently. Will continue IOP tx to promote mood stability and further decrease intensity of symptoms. Narrative Note: []
--- NOTE | 2020-03-09 11:16 | BH.SGPN.GN ---
Behaviors/Verbalizations/Mental Status: []Client alert and oriented, neatly dressed and groomed. Eye contact good. Motor activity appropriate. Speech within normal limits. Affect unable to gather due to client wearing a mask which is part of the [facility] COVID Protocol. Mood euthymic. Thoughts linear, logical, no signs of hallucinations or delusions. Client Response/Progress/Benefit: []Client responded well to session as evidenced by client listening attentively to others and providing input throughout session. Client identified his warning signs for crisis and gained further awareness of earliest warning signs. Client appeared to connect that awareness of these warning signs can prevent further crisis and help client utilize healthy coping skills to break the cycle. Client created a crisis action plan to help client better manage warning signs for crisis. Client?s plan included: opposite action, trying something for 10 minutes, cooking or doing something that requires full attention, reaching out to support, and self-talk. Client also helped peers come up with ideas for coping skills for their crisis action plans. Client appeared to benefit from creating a crisis action plan and increasing self-awareness. Client to continue IOP tx to promote gains, further decrease intensity of symptoms, and improve mood stability. Narrative Note: []
--- NOTE | 2020-03-10 09:06 | BH.SGPN.GN ---
Behaviors/Verbalizations/Mental Status: []Client alert and oriented, casual dress, hygiene tended to. Eye contact good. Motor activity appropriate. Speech within normal limits. Affect congruent, mood anxious. Thoughts linear, logical, no signs of hallucinations or delusions. Reviewed client?s symptom tracker, pt denies current suicidal thoughts or intention to date. Client Response/Progress/Benefit: []Pt responded well to session, engaged throughout and willing to openly process with the group. Pt indicated mood for the day as ?zazzed? and attributed this to ?doing more of the things I enjoy?. Able to identify current mental health wins as being able to get his care fixed as well as following through with the homework he had received during his last individual session. Shared that the homework was also a stressor as he was nervous to do it and at times struggled with beating himself up for feeling anxious. Receptive of and appeared to benefit from support of the group and reflecting upon progress. Pt to continue IOP tx program to maintain gains made, prevent decompensation, as well as continue to improve ability to challenge negative thoughts impacting mental health.? Narrative Note: []
--- NOTE | 2020-03-10 10:15 | BH.SGPN.GN ---
Behaviors/Verbalizations/Mental Status: []Eye contact is good. Motor activity is appropriate. Appearance is casual. Speech is within normal limits. Mood is euthymic. Affect unable to gather due to wearing a mask for COVID-19 protection. Thoughts are linear and logical. No evidence of psychosis. Client Response/Progress/Benefit: []Client was an active participant AEB client contributing to discussion and participating in activity. Client connected with the quote sharing, the right path is telling myself I am worthy but it's not easy. Client helped the group discuss barriers that keep them stuck from choosing a healthier path to mental wellness. These barriers included; fear of failure, comfort, habit, family and friends, fear of change, and distortions. Group worked together to identify examples of personal pitfalls which included; lack of self-care, holding in emotions, avoidance, medication noncompliance, and not communicating with supports. Engaged during the activity and did well to manage own emotions throughout. Benefited from increased awareness on the impact that pitfalls can have on mental health. Will continue IOP tx to further decrease negative thinking that reinforces poor self-worth and depression. Narrative Note: []
--- NOTE | 2020-03-10 11:15 | BH.SGPN.GN ---
Behaviors/Verbalizations/Mental Status: []Client alert and oriented, casual dress, hygiene tended to. Eye contact fair. Motor activity appropriate. Speech within normal limits. Affect congruent, mood euthymic. Thoughts linear, logical, no signs of hallucinations or delusions. Client Response/Progress/Benefit: []Client receptive of session, engaged throughout AEB client participating in discussion and listening to others. Processed activity with group and connected it to overcoming personal pitfalls in life. Client completed a worksheet where he identified personal pitfalls impacting mental health progress. Identified pitfalls as: isolation, avoidance, assumptions, heightened emotions, feeling worthless and lack of awareness. Attentive and contributing during psychoeducation on strategies to overcome pitfalls. Client stated he will work on the pitfall of feeling worthless by contacting supports, communicating how he is feeling, and positive self-talk. Client to continue IOP level of care to continue use of healthy coping skills, challenge distorted thoughts and prevent decompensation. Narrative Note: []
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
--- NOTE | 2020-03-11 10:12 | BH.SGPN.GN ---
Behaviors/Verbalizations/Mental Status: []Alert and oriented. Eye contact is good. Motor activity is appropriate. Appearance is casual. Speech is Appropriate. Mood is euthymic. Affect unable to gather due to wearing a mask for COVID-19 protocol. Thoughts are linear and logical. No evidence of psychosis. Client Response/Progress/Benefit: []Client was an active participant in group discussion and activity. Contributed to discussion on quote and shared ?situations in life can happen by chance, but growth happens by choice.? Client reported in life there are different forces ?and these could be supports working together or shaping you.? Group worked together to come up with common negative forces in life which can hold them back from growth. These included; loss, accidents, stigma, and negative thoughts. Group then worked together to identify common positive forces which help us grow. These included; healthy coping skills, positive support, ambition, and managing emotions. Client participated in the group activity and took a leadership role which is progress for him. Benefited AEB increased insight and awareness on the impact of negative and positive forces on mental wellness. Will continue IOP tx to promote gains, combat distortions, and further decrease depression. Narrative Note: []
--- NOTE | 2020-03-11 11:19 | BH.SGPN.GN ---
Behaviors/Verbalizations/Mental Status: []Eye contact is good. Motor activity is appropriate. Appearance is casual. Speech is Appropriate. Mood is anxious and dysthymic. Affect is congruent. Thoughts are linear and logical. No evidence of psychosis. Client Response/Progress/Benefit: []Pt was an engaged participant in activity as evidenced by pt providing input, giving direction to fellow participants, and attentively listening to others. Group worked together to come up with common negative forces in their lives which can hold them back from growth. Pt identified personal negative forces impacting progress include: unhealthy coping skills, negative reinforcements, and depressive episodes. Group then worked together to identify common positive forces which help us grow. Pt personal positive forces included: Healthy coping skills, positive supports, a desire to continue to improve his mental health, as well as identifying personal wins. Pt was attentive during psychoeducation on the importance of utilizing many aspects of positive forces to help one grow. Identified that he could enhance current positive forces by practicing application of positive self-talk statements on a more regular basis. Benefited from group with increased insight and awareness on the impact of negative and positive forces on mental wellness. Narrative Note: []
--- NOTE | 2020-03-15 08:19 | BH.MDN_ITS ---
Multi-Disciplinary Note - Note 60-min Individual Time Started:: 10:10 Date: 03/12/20 Purpose of session/treatment goals addressed:: The purpose of this session was to assess current symptoms, stressors, and treatment progress. Another purpose was to review homework and identify next steps for reducing anxieties related to confrontation. Eye Contact:: Good Motor Activity:: Appropriate Appearance:: Neat, Casual Speech:: Appropriate Mood:: Euthymic, Anxious Affect:: Congruent Thoughts:: Linear, Logical, No evidence of hallucinations/delusions noted Staff Interventions:: Therapist asked open ended and furthering questions to elicit information regarding client current symptoms, stressors, and treatment progress. Provided supportive feedback and empathic responses as client discussed current stressors impacting mental health symptoms. Used CBT co mponents to aid in challenging use of distortions. Applied OR techniques to promote healthy change behaviors and take next steps in confrontation exposure. Client Response:: Client was receptive of meeting and responded well to session. He discussed feeling ?alright? on this date but has found himself struggling continuing to struggle with ?moments of depression and negative thoughts? related to recent stressors and feeling increased pressure to find employment. Discussed his current stressors include car troubles and the illness of his family dog. Noted that he was able to challenge himself to identify the positives in each situation which reduced the intensity of his negative thoughts. Client went on to discuss that he feels he has made significant progress in the program, most notably being that he has increased hope for his future and has not experienced any suicidal thoughts in the past several weeks. Client indicated that although he is proud of the progress he has made, he is also nervous as he feels this means he will be discharging from the program soon and will need to find employment soon. Expressed feeling ready to return to work but is nervous that he will ?fail? and that his ?depression will return?. Did well to work with therapist on challenging associated distortions and identifying current skills client can utilize to maintain gains made. Reports that positive self-talk and opposite action have been most beneficial in improving his mental health thus far. Discussed that positive self-talk helped most in completing his homework on coping with confrontation. Discussed the homework as difficult but empowering. Shared feeling proud he was able to advocate for himself during the exercise. Client expressed that he still struggled with guilt that he fears confrontation in the first place. Indicated not feeling reading to address confrontation through completing exposure exercises in session, though willing to continue practicing advocating for himself through completing last week?s confrontation exercises at least twice with his girlfriend?s help to aid in reducing anxiety related to facing confrontation. Will complete next exposure exercise in session next week. Risks/Concerns:: No risks or concerns noted. Pt denies any active SI, plan, or intent as of this date. 03/12/20. Progress Toward Goals/Plan:: Progress noted. Pt shared improvements in overall mood and increased ability to challenge negative thoughts. Continues to report difficulties in managing grief related triggers, self-deprecation, and anxieties about making mistakes or being judged by others. Reports motivation and willingness to engage in activities that he finds enjoyable and is making more time for self-care. Pt to continue IOP tx to prevent decompensation, decrease sx severity, and continue to promote use of healthy coping skills. Time Stopped:: 11:15
--- NOTE | 2020-03-16 09:15 | BH.SGPN.GN ---
Behaviors/Verbalizations/Mental Status: []Client alert and oriented, disheveled in appearance. Eye contact good. Motor activity appropriate. Speech within normal limits. Affect constricted, mood depressed. Thoughts linear, logical, no signs of hallucinations or delusions. Reviewed client?s symptom tracker, pt denies current suicidal thoughts or intention to date. Client Response/Progress/Benefit: []Pt responded well to session as evidenced by pt openly sharing thoughts and feelings. Pt stated currently feeling stressed that his best friend, that lives with pt, will be going to [employer] for the next 8 weeks. Pt reported he is nervous he will feel lonely with his friend gone. Pt stated additional stressor is worried his girlfriend is returning to unhealthy eating patterns. pt reported his girlfriend has struggled with anorexia in the past and is anxious she is starting to struggle with that again. Pt identified mental health positive as using grounding tools to decrease his anxiety. Pt reported he has been trying to use his skills to stay present and not catastrophize over his stressors. Progress noted with pt reporting communicating with his girlfriend about his concerns when in the past pt would have kept his concerns to himself. Pt to continue IOP to continue use of healthy coping, challenge negative thoughts and prevent decompensation. Narrative Note: []
--- NOTE | 2020-03-16 10:20 | BH.SGPN.GN ---
Behaviors/Verbalizations/Mental Status: []Client alert and oriented, casually dressed and groomed. Eye contact good. Motor activity appropriate. Speech within normal limits. Affect unable to gather due to client wearing a mask as a COVID protocol, mood euthymic. Thoughts linear, logical, no signs of hallucinations or delusions. Client Response/Progress/Benefit: []Client was an active participant AEB client providing input during discussion and listened attentively to others. Contributed to discussion of the quote and stated he could connect with the concept of sitting with uncomfortable feelings. Client shared ?it reminds me of my individual homework...sitting with the feelings makes you get used to them.? Client connected with discussion on the difference between ?normal? anxiety and when anxiety becomes problematic. Client gained awareness of personal physical symptoms of anxiety which included:headaches, fidgeting, feeling hot, and variable appetite. Client also identified safety behaviors client has used when feeling anxious. These safety behaviors included; isolating, minimizing, and distracting himself with other things. Client appeared to benefit from gaining insight to physical signs of anxiety and personal safety behaviors. Will continue IOP to increase healthy coping skills, challenge distorted thoughts, and promote gains. Narrative Note: []
--- NOTE | 2020-03-16 11:21 | BH.SGPN.GN ---
Behaviors/Verbalizations/Mental Status: []Client alert and oriented, casual in appearance. Eye contact good. Motor activity appropriate. Speech within normal limits. Affect congruent, mood dysthymic, anxious. Thoughts linear, logical, no signs of hallucinations or delusions. Client Response/Progress/Benefit: []Pt active participant and providing input to discussion, listened attentively to others and taking notes throughout. Pt able to connect with the discussion reviewing three categories of skills for managing anxiety which included mind-based, body-based, and self-soothing. Providing examples throughout and contributed ideas. Described to the group what mindfulness is and gave an example of progressive muscle relaxation. Pt did well to identify a skill he is willing to practice mindfulness in the areas of body-based as: progressive muscle relaxation, Self-soothing as: time in nature, and mind-based: positive self-ta;l. Pt seemed to benefit from increased awareness of healthy skills to manage anxiety related symptoms and in identifying skills willing to practice outside treatment environment. Progress noted with increased thought challenging and reduced reports of depression. Client to continue IOP level of care to increase healthy coping skills, continue to promote emotion regulation skills, and prevent decompensation. Narrative Note: []
--- NOTE | 2020-03-17 09:59 | PCM.BH.PN_ITS ---
Progress Note Progress Note: History of Present Illness/Interim History: [] Patient is a 19-year-old single male who is seen in follow-up at the behavioral health IOP program at [facility]. I last saw the patient about 3 weeks ago. He states that he is much better in mood than he was last time I saw him. He describes his mood as almost completely euthymic or normal at this point. He says he only gets down now when he thinks of his brother dying several years ago and he feels this is just waves of grief that he still has on occasion. He feels he is really benefiting from the IOP program and is learning skills that he can use to cope when he feels down or anxious. He denies any hopelessness, passive thoughts, and suicidal ideation. Denies hallucinations or delusions. His sleep is much better and is getting 7 to 8 hours per night. He is still trying to keep regular sleep-wake cycles. He is enjoying his 1-year-old puppy still and she finds her very therapeutic. He is much less anxious now and has not had any panic attacks in the past few weeks. He is still not working and feels okay about that now. He is taking his medications as prescribed and is compliant with them and feels that this is an adequate medication dose. Current Psychiatric Medications: [] Zoloft 100 mg p.o. daily; BuSpar 10 mg (2 tablets p.o. 3 times a day) Mental Status Examination: [] Patient is a 19-year-old male who is wearing a mask due to the pandemic and appears normal for stated age and is capo ually dressed and groomed with good hygiene. He wears glasses. He is cooperative during the interview and his eye contact is good. His speech is normal rate and rhythm with no pressure. His mood is euthymic. His affect is full and normal. His thought processes organized and goal-directed. Thought content: No evidence of suicidal, homicidal ideation, passive thoughts of , hallucinations or delusions. His judgment is intact. Insight is good. Impulsivity low to moderate. Diagnoses: [] Brandeis I: [] Major depressive disorder, recurrent, severe, without psychosis (resolving); generalized anxiety disorder Brandeis II: [] Mild cluster B traits Brandeis III: [] Negative Brandeis IV:[]] School and work issues Plan: [] Patient will continue the IOP program as the structure, support, educa tion, group and individual therapy has really benefited him and prevented the worsening of his symptoms. He may be discharged next week if he continues to do well and the patient plans to attend the aftercare program here at [facility]. He felt safe during the interview and if at any time he is not feel safe he will let us know or go to the emergency room. The risk, options, possible complications and side effects of the medication were again discussed with the patient and he and she understands and accepts these. He will continue the same medication regimen and he states that he does not need refills. He will continue to follow-up with his outpatient providers.
--- NOTE | 2020-03-17 10:15 | BH.SGPN.GN ---
Behaviors/Verbalizations/Mental Status: [] Eye contact is good. Motor activity is appropriate. Appearance is casual. Speech is Appropriate. Mood is anxious, euthymic. Affect is congruent. Thoughts are linear and logical. No evidence of psychosis. Client Response/Progress/Benefit: []Pt was an active participant in group discussion and activity, providing input throughout. Pt worked with peers on defining what goals are and indicated that ?goals are something to help keep us accountable?. Brainstormed with the group the benefits of goal-setting which included: increased motivation, feeling accomplished, gives us a sense of direction, and increase positive thinking. Pt noted connecting with personal goal setting benefit of: personal accountability and motivation. Able to provide feedback during psychoeducation on SMART goals. Pt appeared to benefit from learning the mental health benefits of setting goals that are specific, measurable, attainable, relevant, and time-specific. Will continue in IOP to continue to promote healthy change behaviors, maintain stability, and prevent decompensation. Narrative Note: []
--- NOTE | 2020-03-17 11:14 | BH.SGPN.GN ---
Behaviors/Verbalizations/Mental Status: []Eye contact is good. Motor activity is appropriate. Appearance is neat. Speech is Appropriate. Mood is euthymic. Affect unable to gather due to wearing a mask as COVID protocol. Thoughts are linear and logical. No evidence of psychosis Client Response/Progress/Benefit: []Client was engaged and contributing to discussion, did well to develop a personal SMART goal. 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 When asked why this goal was important and beneficial to client's mental health he stated it will improve his mood, increase motivation, and give client a sense of accomplishment. Identified the following barriers to completing this goal which included; lack of motivation, distractions, and filing writer?s block. Identified solutions to barriers which included; opposite action and reminding self of the benefits, removing himself from distractions, and brainstorming with others or on his own. Benefited from this group by developing a short-term SMART goal related to mental health and from problem-solving barriers. Will continue IOP tx to promote gains and further decrease depressive symptoms. Narrative Note: []
--- NOTE | 2020-03-18 09:07 | BH.SGPN.GN ---
Behaviors/Verbalizations/Mental Status: []Client alert and oriented, casually dressed. Eye contact good. Motor activity appropriate. Speech within normal limits. Affect congruent, mood euthymic, anxious. Thoughts linear, logical, no signs of hallucinations or delusions. Reviewed client?s symptom tracker, no risk for suicidal ideation, plan, or intent as of 03/18/20. Client Response/Progress/Benefit: []Client responded well to session, attentive and willing to openly share with the group. Client reports feeling nervous but content today as he is making progress and is nearing the end of IOP treatment which is somewhat anxiety provoking as pt fears ability to maintain gains made. Did well to reflect upon areas of personal progress. Client reflected that current positives include setting aside additional self-care time as well as followed through with the positive self-talk homework he had from last session. Reports that this was difficult but overall a positive experience. Identified a current stressor as ongoing issues with grief related to recent triggers. Willing to consider seeking outpatient grief therapy. Appeared to benefit from reflecting on his positives and application of coping skills. Will continue IOP tx to promote gains and improve mood stability. Narrative Note: []
--- NOTE | 2020-03-18 10:20 | BH.SGPN.GN ---
Behaviors/Verbalizations/Mental Status: []Client alert and oriented, casually dressed, hygiene appeared to be tended to. Eye contact good. Motor activity appropriate. Speech within normal limits. Affect unable to gather due to wearing a mask for COVID-19 protocol, mood euthymic. Thoughts linear, logical, no signs of hallucinations or delusions Client Response/Progress/Benefit: []Client active participant as shown by contribution to discussion and insight provided. Client shared connecting to group topic of self-care and shared a personal example of why it is so important to make self a priority. Client helped the group discuss benefits of self-care which included; less stress, better decision making, increased productivity, and improved relationships. Client stated without self-care relationships can suffer and mental health symptoms can worsen. Client participated in the discussion of the common myths about self-care. Client participated in the discussion on debunking of these myths. Client seemed to benefit from increased awareness of the importance of self-care and challenging common myths that prevent practicing self-care. Client progress noted in client?s self-report of more consistent mood stability and application of healthy coping skills. Will continue IOP tx to promote gains, reinforce healthy coping skills, and further challenge distorted thought patterns. Narrative Note: []
--- NOTE | 2020-03-18 11:19 | BH.SGPN.GN ---
Behaviors/Verbalizations/Mental Status: []Client alert and oriented, casually dressed, hygiene appeared to be tended to. Eye contact good. Motor activity appropriate. Speech within normal limits. Affect unable to gather due to wearing a mask for COVID-19 protocol, mood euthymic. Thoughts linear, logical, no signs of hallucinations or delusions Client Response/Progress/Benefit: []Client receptive of session, engaged and positively contributing to discussion. Participated in further debunking myths about self-care. Client shared since starting IOP he has been working on becoming more balanced with self-care. Engaged in small group discussion and attentive while others shared. Willing to complete worksheet activity and helped the group identify various types of self-care activities. Client completed self-assessment activity on the different areas of self-care and was able to identify current practices he uses and identify areas he can improve upon. Client reported he can improve his emotional self-care. Client stated he wants to work on expressing his emotions in healthier ways. Client shared he wants to get better at catching his warning signs earlier. Client appeared to benefit from increasing awareness of how she can improve self-care balance. Progress noted as client has been consistently reporting improved mood and less depressive symptoms. Will continue IOP tx to promote gains, further combat distortions, and improve mood stability. Narrative Note: []
--- NOTE | 2020-03-18 13:06 | BH.MDN_ITS ---
Multi-Disciplinary Note - Note 45-min Individual Time Started:: 08:02 Date: 03/18/20 Purpose of session/treatment goals addressed:: The purpose of this session was to assess current symptoms, stressors, and treatment progress. Another purpose was to aid pt in identifying ways to communicate employment concerns with his mother as well as work on using self-confrontation as a means of challenging negative self-talk. Eye Contact:: Good Motor Activity:: Appropriate Appearance:: Casual Speech:: Appropriate Mood:: Euthymic, Anxious Affect:: Congruent Thoughts:: Linear, Logical, No evidence of hallucinations/delusions noted Staff Interventions:: Therapist asked open ended and furthering questions to elicit information regarding client current symptoms, stressors, and treatment progress. Provided supportive feedback and empathic responses as client d iscussed current stressors impacting mental health symptoms. Used CBT components to aid in challenging use of distortions. Discussed effective communication strategies and boundary setting skill pt may use to discuss employment related concerns with his supports. Applied OR techniques to promote healthy change behaviors and assisted pt in taking a strength?s based approach to addressing his own negative self-talk. Client Response:: Client was receptive of session, actively engaged throughout. He discussed feeling mostly positive, but somewhat anxious on this date. Clarice cated that this is due to continued anxiety regarding his plans post discharge. Pt shared that his mother is pressuring him to get a job which he is worried about. Shared wanting to return to work but is concerned about rushing into a job that is not a good fit for him and then experiencing an influx in mental health sx. Pt able to identify the importance of discussing his concerns with his mother rather then continuing to avoid. Identified that he could talk with her about compromising on pt beginning to look for employment now but not taking a position until he finds one that support his mental health needs. Discussed effective ways for pt to communicate this with his mother. 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 Expressed ongoing struggles with grief which have impacted pt overall mood over the past week. Receptive of referral information for Hospice in order to continue grief specific counseling following discharge from [facility] this week. Noted that he has otherwise been doing well to continue challenging negative thoughts. Discussed successfully completing his homework which he indicated as being easier to do the second time around. Noted however that he continues to struggle with feeling ?small? when in the company of others and feels as though there is ?A little aimee on my shoulder telling me I?m not good enough?. Pt discussed knowing that this is his own self-doubt and negativity impacting him though struggles to tell the inner voice what they?re saying isn?t true. Discussed with therapist strategies for quieting the negative thoughts by picturing the ?little aimee? on his shoulder in a non-intimidating light. Pt indicated connecting with this exercise and indicated he would be able to do so by working on making the thoughts appear ridiculous or identifying reasons why they are unrealistic. Risks/Concerns:: No risks or concerns noted. Pt denies any active SI, plan, or intent as of this date. 03/18/20. Progress Toward Goals/Plan:: Progress noted. Pt continues to share improvements in overall mood and ability to manage ongoing stressors and negative thoughts. Continues to do well to reach out to his supports and is actively working to complete the exposure exercises aimed at challenging confrontation related anxiety and reducing negative or self-deprecating talk. Reports continuing to struggle in these areas at times, though provided insight that a majority of his negative thinking is situational based and indicated improvements in overall ability to reframe and cope in these situations. Continuing to make progress in increased self-care. Pt to continue IOP tx to prevent decompensation, decrease sx severity, and continue to promote use of healthy coping skills. Time Stopped:: 08:46
--- NOTE | 2020-03-19 14:14 | BH.DS ---
Discharge Summary - Demographics Date of Admission:: 01/27/20 Discharge Date: 03/25/20 Presenting Problems at Admission:: Client is a 19-year-old single male who was referred to the program by outpatient counselor due to increased sx of depression and anxiety resulting in pt leaving his most recent job and effecting ability to function at baseline. Client additionally dropped out of college in 2018 secondary to worsening depression. At time of intake, pt reports he has been depressed for the most part since 2018. His younger brother in 2016 from a rare cancer and he feels that this has been a trigger for his tendency towards depression since that time. Client has a hx of one prior hospitalization in July 2019 due to a prior suicide attempt. He has a history of passive thoughts that he would not care if he or did not wake up in the morning. He denies any current active or fleeting suicidal ideation. Client is currently endorsing a depressed mood with anhedonia, low energy, and passive thoughts of . Client also reports increased anxiety, agitation, and negative thinking which impact social, familial, and occupational functioning Discharge Diagnoses:: Major depressive disorder recurrent severe without psychosis; generalized anxiety disorder Reason for Discharge:: Pt has made significant progress with decreased depression and anxiety and improved emotion regulation and stability. No longer meets criteria for IOP level of care. - Treatment Progress During Treatment & Response: Pt has made progress since beginning treatment AEB self-report and DSM-5 scores indicating decreased depression, decreased suicidal ideation, decreased anxiety, and reduced levels of irritability since beginning IOP tx program. This is evidenced by pt's self-report scores on DSM 5 cross-cutting measure. Pt has seen a 68% reduction in overall scores with depressive symptoms decreasing by 60%, a 57% reduction in anxiety, and 100% reduction in irritability. Pt responded well to program AEB pt contributing during discussion, willing to challenge himself to try new coping skills, increased willingness to open up to supports, as well as completing all assigned homework. Pt initially struggled with speaking in the group setting and externalization, but has made much progress in both these areas. Issues Still to be Addressed:: Pt could benefit from continued focus on identifying and challenging distorted and negative thoughts, especially when recognizing self-deprecation. Pt additionally struggles with emotion regulation when feeling he has messed up or is overwhelmed. He could benefit from increasing positive supports and continuing to work on advocating for himself and his own needs. Pt continues to struggle with prolonged grief and has been provided with grief counseling resources. Discharge Recommendations/Instructions:: Pt to discharge from program given progress made and is [facility], as well as is to continue medication [facility] with [facility]. Pt continues to struggle with prolonged grief and has been provided with grief counseling resources. Pt is to begin the [facility] After Care Program next week. Discharge Handout: Complete Discharge Handout with client on aftercare options and continuity of care.
--- NOTE | 2020-03-23 09:03 | BH.SGPN.GN ---
Behaviors/Verbalizations/Mental Status: []Client alert and oriented, casually dressed and groomed. Eye contact good. Motor activity appropriate. Speech within normal limits. Affect unable to gather due to client wearing a mask for COVID-19 protocol, mood euthymic. Thoughts linear, logical, no signs of hallucinations or delusions. Reviewed client?s symptom tracker, no risk for suicidal ideation, plan, or intent as of 03/23/20. Client Response/Progress/Benefit: []Client responded well to session, active participant and engaged. Client reports feeling excited today. Client reported he had a good weekend and shared he has been happy with all the progress he has made. Client shared he has a lot going on but he has been able to cope well. Client stated his stressor today is a positive thing as well, as this is client's last week in [facility]. Client reported he will miss coming to group on a regular basis, but he is proud of the progress he has made. Client is also glad that he will get to participate in aftercare. Client mentioned being proud of his ability to challenge his all or nothing thinking and set more realistic goals. Appeared to benefit from reflecting on progress and personal growth. Will discharge from [facility] later this week. Can benefit from a couple more IOP sessions to reinforce healthy coping skills and establish aftercare. Narrative Note: []
--- NOTE | 2020-03-23 10:15 | BH.SGPN.GN ---
Behaviors/Verbalizations/Mental Status: []Client alert and oriented, casually dressed and groomed. Eye contact good. Motor activity appropriate. Speech within normal limits. Affect constricted, mood anxious, euthymic. Thoughts linear, logical, no signs of hallucinations or delusions. Client Response/Progress/Benefit: []Client responded well to session, attentive and providing input to discussion. Client indicated connecting with topic of boundaries and agreed with peers that healthy boundaries are essential for maintaining mental health. Group participated in the discussion on benefits of setting boundaries which included; feeling happier, improved self-confidence, avoidance of toxic people, and reduced stress. Client engaged during discussion of the different types of boundaries and able to identify and connect with examples of each. Client also helped the group recognize the consequences of not having healthy boundaries and noted that for him this has led to not getting his emotional needs met and resulted in pt minimizing. Client seemed to benefit from increased awareness of how poor boundaries can negatively impact mental health. Progress noted in client?s increased participation in group and self-report of improved mental health symptoms. Will continue IOP tx to promote mood stability, further decrease depression, and improve daily functioning. Narrative Note: []
--- NOTE | 2020-03-23 11:20 | BH.SGPN.GN ---
Behaviors/Verbalizations/Mental Status: []Client alert and oriented, casually dressed. Eye contact fair. Motor activity appropriate. Speech within normal limits. Affect congruent, mood euthymic. Thoughts linear, logical, no signs of hallucinations or delusions. Client Response/Progress/Benefit: []Client responded well to session, actively contributing during discussion and making connections during the activity. Client engaged in the boundary self-assessment activity and participated in discussion to process the activity. Client shared he used to be even more closed off to people, but coming to IOP and processing through stressors in his life has helped client reach out to supports. Client attentive during psychoeducation on the boundary setting styles and he shared belief he uses the rigid and flexible boundary setting styles. Client stated he has not always been able to verbalize his emotions due to past negative experiences, but now he sees that this reinforces depression. Client shared he has been trying to become more flexible by sharing his emotions during group and with his close supports. Progress noted in client?s report of reduced isolation and application of opposite action. Will continue IOP tx to promote use of healthy coping skills, further decrease depression, and improve functioning. Narrative Note: []
--- NOTE | 2020-03-24 09:07 | BH.SGPN.GN ---
Behaviors/Verbalizations/Mental Status: []Client alert and oriented, casually dressed. Eye contact good. Motor activity appropriate. Speech within normal limits. Affect congruent, mood euthymic, anxious. Thoughts linear, logical, no signs of hallucinations or delusions. Reviewed client?s symptom tracker, no risk for suicidal ideation, plan, or intent as of 03/24/20. Client Response/Progress/Benefit: [] Client responded well to session, attentive and willing to share with the group. Client reports feeling tired today as he was up late trying to be a support to his girlfriend as she was struggling with her own mental health. Expressed this was ?kind of a stressor? as pt was the one to initiate the discussion and tends to avoid confrontation Noted feeling proud of himself for doing so. Pt did well to identify current mental health wins as taking time to practice self-care via writing for fun as well as taking time for regular check-in?s with himself to maintain self-awareness. Pt appeared to benefit from identifying areas of progress as well as the supportive and structured group setting. Will continue IOP tx to maintain mood stability and improve mental health sx management as he transitions back to full-time employment. Narrative Note: []
--- NOTE | 2020-03-24 10:15 | BH.SGPN.GN ---
Behaviors/Verbalizations/Mental Status: []Client alert and oriented, casually dressed. Eye contact good. Motor activity appropriate. Speech within normal limits. Affect congruent, mood euthymic. Thoughts linear, logical, no signs of hallucinations or delusions. Client Response/Progress/Benefit: []Pt engaged in session AEB pt listening attentively to others and providing input throughout session. Pt shared emotions that are underlying anger include: sad, vulnerable, embarrassed, helpless, invalidated, anxious, overwhelmed and grief. Pt identified the following as ways he expresses anger: crying, lashing out, shut down, avoidance, unhealthy coping skills, and passive-aggressive behaviors. Pt seemed to benefit from increased awareness of how unmanaged anger can impact self and others. Pt to continue IOP to maintain gains, continue to utilize healthy coping skills and prevent decompensation. Narrative Note: []
--- NOTE | 2020-03-24 11:15 | BH.SGPN.GN ---
Behaviors/Verbalizations/Mental Status: []Client alert and oriented, casually dressed and groomed. Eye contact good. Motor activity appropriate. Speech within normal limits. Affect unable to gather due to client wearing a mask for COVID-19 protocol. mood tired and euthymic. Thoughts linear, logical, no signs of hallucinations or delusions. Client Response/Progress/Benefit: []Client was an engaged participant throughout group AEB client providing input throughout discussion. Client helped the group identify common warning signs of anger and identified his personal warning signs of anger which included; increased heart rate, shortness of breath, dizziness, and sweating. Group brainstormed with group healthy coping skills to help manage anger which included: deep breathing, opposite action, exercise, taking breaks, and redirecting anger. Client selected deep breathing as the skill he wants to incorporate this week to manage anger. Client reflected on his progress and shared since the last time he had this group, client is able to let go of his anger more quickly. Client appeared to benefit from identifying different techniques to manage anger as well as gaining awareness of warning signs. Recommended one more day of IOP tx to promote gains and establish aftercare. Narrative Note: []
--- NOTE | 2020-03-25 09:05 | BH.SGPN.GN ---
Behaviors/Verbalizations/Mental Status: []Client alert and oriented, casually dressed. Eye contact good. Motor activity appropriate. Speech within normal limits. Affect congruent, mood euthymic, slightly anxious. Thoughts linear, logical, no signs of hallucinations or delusions. Reviewed client?s symptom tracker, pt denies current suicidal thoughts or intention to date. Client Response/Progress/Benefit: []Pt responded well to session as evidenced by pt listening attentively to others and sharing thoughts and feelings. Pt stated he is having mixed emotions today because it is his last day in IOP. Pt identified current emotion as bittersweet. Pt reported he can note a lot of progress since starting IOP. Pt stated he is happy he followed through with starting IOP because he has learned so much. Pt reported the most significant progress for him is learning many coping skills and strategies that have helped him manage his mental health symptoms more effectively. Pt stated he looks forward to starting the [facility] Trans[facility] Aftercare program to help keep him accountable and maintain progress made. Pt has made significant treatment progress since starting IOP and no longer meets medical necessity for [facility] level of care. Pt is to discharge from [facility] today. Narrative Note: []
--- NOTE | 2020-03-25 10:17 | BH.SGPN.GN ---
Behaviors/Verbalizations/Mental Status: []Client alert and oriented, casually dressed and groomed. Eye contact good. Motor activity appropriate. Speech within normal limits, soft. Affect congruent, mood euthymic. Thoughts linear, logical, no signs of hallucinations or delusions. Client Response/Progress/Benefit: []Pt was an engaged participant throughout group session AEB contributing to discussion. Connected with quote and topic of healthy coping. Group discussed common unhealthy coping skills which included; avoidance, drinking, sleeping, eating too much, lashing out on others, and prioritizing other things over actual responsibilities. Group reported people turn to unhealthy skills because it?s often easier, as well as habit, fear, and wanting a quick fix. Client worked with group so identify impact of unhealthy coping on mental health and noted that learning healthy coping skills takes self-awareness, discipline, and practice. Participated in the coping activity and did well to utilize healthy coping skills when faced with potential stressors and setbacks. Client seemed to benefit from improved awareness of importance of increasing healthy coping skills and consequences of utilizing unhealthy coping skills. Client to discharge from [facility] tx given gains made and will stepdown to the After Care program. Narrative Note: []
--- NOTE | 2020-03-25 11:19 | BH.SGPN.GN ---
Behaviors/Verbalizations/Mental Status: []Client alert and oriented, casually dressed and groomed. Eye contact good. Motor activity appropriate. Speech within normal limits, quiet. Affect congruent, mood euthymic. Thoughts linear, logical, no signs of hallucinations or delusions. Client Response/Progress/Benefit: [] Client responded well to session, connected with activity and participating in discussion. Agreed with peers that it is important to have a balance of healthy coping skills, to have back-up options incase a usual coping skill is not effective. Client contributed as the group discussed the different categories of coping skills which included distraction, emotional release, grounding, self-love, and thought challenging. Provided examples of grounding exercises to the group. He participated in creating a coping skills ?menu? for the five categories of coping skills. Client's coping skill menu included; exercising for emotional release, deep breathing, positive self-talk, using his pets as healthy distraction, and reframing skills. He appeared to benefit from increasing repertoire of healthy coping skills. Client progress shown by his report of reduced avoidance behaviors, especially in group. Will continue IOP tx to further decrease social anxiety and improve mood stability. Narrative Note: []
--- NOTE | 2020-03-25 14:11 | BH.MDN_ITS ---
Multi-Disciplinary Note - Note 30-min Individual Time Started:: 12:25 Date: 03/25/20 Purpose of session/treatment goals addressed:: The purpose of this session was to assess current symptoms, stressors, and treatment progress. Another purpose was to review aftercare plan and identify strategies for success following discharge. Eye Contact:: Good Appearance:: Casual Speech:: Appropriate Mood:: Euthymic, Anxious Affect:: Full, Congruent Thoughts:: Linear, Logical, No evidence of hallucinations/delusions noted Staff Interventions:: Therapist asked open ended and furthering questions to elicit information regarding client perception of current symptoms, stressors, application of coping skills, and treatment goal progress. Provided supportive feedback and used strengths-based approaches to assist pt in identifying areas of progress. Provided pt with the DSM-5 cross cutting analysis to complete and aided pt in comparing results from time of intake to discharge. Used MO techniques to promote healthy change behaviors and aid Pt in identifying barriers as well as strategies for ongoing tx progress. Challenged thought distortions. Worked with pt to complete discharge planning. Client Response:: Client was receptive of meeting and responded well to session. He entered session appearing visibly distracted by his own thought and indicated feeling frustrated and concerned about his girlfriend. Noted he had just received a phone call from her in which she indicated sleeping through the doctor?s appointment she had previously scheduled with pt?s help to begin addressing a resurgence in symptoms related to a prior eating disorder. Pt expressed feeling scared for his girlfriend?s health and frustrated as he feels she has been putting off addressing her own mental health and minimizing her symptoms. Pt and therapist worked to process pt?s emotions and discuss ways in which he can be a positive support to his girlfriend while maintaining healthy boundaries to support his own mental health and prevent acting on the urge to ?fix her problems?. Able to recognize the importance of self-care and supporting rather than making her problems his responsibility. Pt and therapist went on to review pt overall areas of progress since beginning IOP tx as well as compared DSM-5 cross cutting scores from admission to current date. Pt DSM-5 scores saw an overall reduction of 68%. Pt reports feeling he has most significantly progressed in overall self-confidence levels and ability to be kinder and more compassionate with himself. Noted a reduction in anxiety and depression as a result and noted feeling more confident in his ability and right to pursue his own interests and dreams. Pt shared that he has been using mindfulness, reaching out to supports, taking time to check-in with himself, and making self-care a priority in order to continue to maintain gains made. Expressed feeling ready to discharge from [facility] tx and continue with therapy on an outpatient basis at [facility]. Risks/Concerns:: :: No risks or concerns noted. Pt denies any active SI, plan, or intent as of this date. 03/25/20. Progress Toward Goals/Plan:: Progress noted. Pt shared continued improvements in overall mood management, increased ability to manage daily stressors such as potential confrontation, and continued improvements in the area of self-love and confidence by changing the way he speaks to himself. No longer reports suicidal ideation or thoughts of . Discussed improved confidence in his ability to independently to follow through with his personal goals, advocate for himself, and set healthy boundaries. Pt has seen an overall 68% reduction in sx since admission to program. Pt to discharge from program given progress and is to continue outpatient tx with [facility] and start the [facility] After Care program next week. Will continue medication management with [facility]. Time Stopped:: 13:00
--- NOTE | 2020-03-25 14:24 | BH.IGGP_ITS ---
Aftercare Plan - Demographics Treatment End Date:: 03/25/20 Psychiatrist:: Charlene Urias Psychiatrist Office #:: [phone] [facility] Therapist:: Brittaney Person Therapist Phone #:: [phone] - Medications Home Medications: Home Medications Sertraline HCl [Zoloft] 100 mg PO DAILY 01/28/20 busPIRone [Buspar] 20 mg PO TID 01/28/20 - Plan Details Progress/Aftercare Plan Details:: Pt has made progress since beginning treatment AEB self-report and DSM-5 scores indicating decreased depression, decreased suicidal ideation, decreased anxiety, and reduced levels of irritability since beginning IOP tx program. This is evidenced by pt's self-report scores on DSM 5 cross-cutting measure. Pt has seen a 68% reduction in overall scores with depressive symptoms decreasing by 60%, a 57% reduction in anxiety, and 100% reduction in irritability. Pt responded well to program AEB pt contributing during discussion, willing to challenge himself to try new coping skills, increased willingness to open up to supports, as well as completing all assigned homework. Pt initially struggled with speaking in the group setting and externalization, but has made much progress in both these areas. Strategies for Success:: ?Opposite Action!!! ? do what will help you, even when your brain is saying don?t do it, even when it feels uncomfortable, even when you are tempted to take the easy or toxic way out. ?Challenge negative thought patterns by trying to look at things from the other perspective. ?Continue to COMMUNICATE, COMMUNICATE, COMMUNICATE your mental health needs and concerns with your supports. Others cannot help you if you don?t first let them know what you need. ?Keep reaching out to HEALTHY friends and supports! There are people who care and want to see you doing well! ?Continue to make time for yourself! Self-care is carcamo to maintaining progress and staying level! This includes sometimes doing those hard things. Remind yourself you deserve to take time to care for you AND ASK YOURSELF ?What would I be losing if I didn?t do this for myself?? ? Check-in with yourself regularly in order to identify what may be stressing you out and allow yourself to take small breaks if you find yourself getting overwhelmed. Keep practicing positive self-talk and remember that YOU ARE WORTH IT. - Appointments Appointments/Referrals to Other Services:: Pt to discharge from program given progress made and is to continue outpatient [facility], as well as is to continue medication management with [facility]. Pt continues to struggle with prolonged grief and has been provided with grief counseling resources. Pt is to begin the [facility] After Care Program next week.
== END 2020-03-25 14:00 | disposition home or self-care (01) ==
LOC: BHIOP 09:00
PROVIDERS: Referring Provider Psychiatry & Neurology Psychiatry; Visit Provider Psychiatry & Neurology Psychiatry
DX: F33.2 Major depressive disorder, recurrent severe without psychotic features (principal); F41.1 Generalized anxiety disorder; Z79.899 Other long term (current) drug therapy
CPT/HCPCS: H0035; 90832; 90834; 90837; 90853

== ENCOUNTER 2020-04-01 13:50 | Outpatient (RCR) | payer OTHER, SELFPAY ==
--- NOTE | 2020-04-01 14:05 | BH.SGPN.GN ---
Behaviors/Verbalizations/Mental Status: []Client alert and oriented, casually dressed. Eye contact good. Motor activity appropriate. Speech within normal limits. Affect constricted, mood euthymic. Thoughts linear, logical, no signs of hallucinations or delusions. Client Response/Progress/Benefit: []Pt responded well to session AEB pt providing input during discussion and listening attentively to peers. Pt reported today is his first day in aftercare group. Pt stated he has been discharged from [facility] for one week. Pt reported he accomplished his goal of continuing to use the skills after discharge from [facility]. Pt stated he has been using positive self-talk frequently. Identified stressor is his girlfriend struggling with anorexia. Pt stated he has a hard time because wants to help her, but recognizes a lot of it is out of his control. Connected with others that engaging in self-love is not something she has been doing often. Pt worked with group to identify strategies to increase self-love. Pt reported he wants to work on self-love by working on silencing his inner critic by remembering everything he thinks is not factual. Pt seemed to benefit from reviewing treatment progress and stressors as well as learning about how to increase self-love. Pt to continue [facility] aftercare program to maintain treatment progress, continue use of healthy coping, and prevent decompensation. Narrative Note: []
--- NOTE | 2020-04-02 14:12 | BH.MTP ---
[facility] - Patient Information Program Physician:: Dr. Cooney Primary Therapist:: DANIELLE Olsen - Psychiatric Diagnoses Psychiatric Diagnoses:: Major depressive disorder recurrent severe without psychosis; generalized anxiety disorder Diagnosis Code(s):: F 33.2 - Estimated LOS Estimated LOS (in weeks):: 12 Problem/Goal #1 - Problem/Goal #1 Stated Goal:: Pt will maintain or see a reduction in symptoms AEB pt?s score on the DSM 5 cross-cutting measure and improve pt?s daily functioning. - Objectives Objective #1 Stated Objective: Pt will continue to consistently apply health coping skills and strategies to maintain progress made through the IOP treatment program. Interventions: Through group therapy, pt will review warning signs/ triggers, as well as healthy coping skills used in the IOP treatment program to successfully maintain gains while transitioning into outpatient therapy. Discharge Criteria: Pt will have met this goal when pt?s score on the DSM 5 cross cutting measure has successfully remained stable or decreased over a period of 12 weeks and per pt?s report. Target Date: 06/24/20 Review Date: 05/13/20 Objective #2 Stated Objective: Pt will learn and successfully implement two to three maintenance strategies to prevent decompensation through the Aftercare group. Interventions: Through groups therapy, pt will be provided with education on healthy maintains behaviors and relapse prevention techniques to prevent decompensation. Discharge Criteria: Pt will have met this goal when can report consistently using at least 2 maintenance skills to prevent decompensation. Target Date: 06/24/20 Review Date: 05/13/20
--- NOTE | 2020-04-08 14:07 | BH.SGPN.GN ---
Behaviors/Verbalizations/Mental Status: [] Client alert and oriented, casual dress, hygiene tended to. Eye contact fair to good. Motor activity appropriate. Speech within normal limits. Affect congruent, mood euthymic. Thoughts linear, logical, no signs of hallucinations or delusions. Client Response/Progress/Benefit: []Pt receptive of session, engaged throughout. Notes feeling content today as he has been able to see continued progress in ability to challenge his ?inner critic? and apply healthy coping skills when feeling down. Expressed that challenging his internal critic as his self-love goal from last week and shared positive self-talk and supports to aid in doing so. Receptive of discussion on self-talk and its influence in maintaining long-term mental health stability. Pt worked cooperatively with group to identify benefits of positive affirmations in improving self-talk and overall ability to better manage potential mental health setbacks. Engaged in discussion on barriers impacting our ability to use or believe affirmation statements, indicating his largest barrier is not believing it when saying the affirmations. Connected with the strategies for improving effective creation and application of believable personal affirmations. Pt identified own personal affirmation statements he would like to begin using. Identified that he would like to improve ability to identify believable positive self-talk statements. Progress noted in self-report of challenging himself to stop his negative internal critic. Pt to continue aftercare group to improve consistent use of healthy coping, maintain stability, and prevent decompensation. Narrative Note: []
--- NOTE | 2020-04-15 14:05 | BH.SGPN.GN ---
Behaviors/Verbalizations/Mental Status: []Client alert and oriented, neatly dressed and groomed. Eye contact good. Motor activity appropriate. Speech within normal limits. Affect unable to gather due to client wearing a mask for COVID-19 protocol. mood euthymic. Thoughts linear and logical. No signs of hallucinations or delusions. Client Response/Progress/Benefit: []Client responded well to session, checked in using his GAPs worksheet. Client identified recent coping skills he has used to be thought challenging, opposite action, grounding, and doing yard work. Client shared his stressor today is his dog has not been doing well which makes client sad. Client engaged well during the discussion of self-compassion. Client connected with the benefits of self-compassion and shared it is a technique he has been trying to use more often. Client participated in the activity of reframing an old experience using self-compassion. Client used the example I haven't been getting daily chores done. Client shared this thought in the past would lead to isolation, worthlessness, and wallowing in sadness. Client reframed this to I've had a lot going on and I've still been very active. Client reported this helps client feel less judgemental and more motivated. Client appeared to benefit from practicing self-compassion. Narrative Note: []
--- NOTE | 2020-04-22 14:59 | BH.MTP_ITS ---
Treatment Plan Review Date of Admission:: 04/01/20 Date of Treatment Plan Review:: 04/22/20 Admitting Diagnoses:: Major depressive disorder recurrent severe without psychosis; generalized anxiety disorder Current Diagnoses:: Major depressive disorder recurrent severe without psychosis; generalized anxiety disorder Patient's Response to Treatment:: Pt has done well to attend program consistently. He remains an active participant and often contributes to group discussion. He completed a mid-point DSM-5 cross cutting scale which indicates a 38% reduction in symptoms since starting the program. Notes a 50% reduction in depression scores and 67% reduction in anxiety scores since beginning aftercare tx. Pt reported that he continues to feel more confident in his ability to know when to apply his coping skills and is actively following through with doing so. He continues to utilize skills of reading, writing, thought challenging, opposite action, and affirmational statements. Pt has been able to not only maintain gains made while in IOP ts, but has seen an additional improvement in overall progress levels. DSM5 cross-cutting scales indicate further reduced symptoms at 4 weeks and continued utilization of healthy coping skills he has l earned. Pt reports that he has been continuing to meet with his outpatient counselor on a weekly basis and is considering seeking grief specific counseling services as well. Client expected to complete the aftercare program in approximately 9 weeks and progress will be reassessed at week 8 in the program. Will continue in Aftercare to maintain gains and prevent decompensation. Status of Current Problems and Symptoms: Client continues to struggle at times with managing his grief related triggers, anxiety, low self-confidence, and distorted thought patterns at times; however, has made much progress. Problem #1 Problem Name:: Pt will maintain or see a reduction in symptoms AEB pt?s score on the DSM 5 Status of Goals:: Pt is making progress on objectives 1 and 2 AEB reduction in overall DSM5 scores, as well as self-report. Pt has continued to remain positive and actively engaged throughout the aftercare program. He reports improved ability to recognize and address mental health sx prior to further escalation. Obj 1- Able to continue applying healthy coping skills of opposite action, thought challenging, positive self-talk, as well as checking-in with supports. Continues to struggle at times with consistency. Obj 2-Has identified several maintenance strategies to utilize in order to maintain progress as well as continue to improve current mental health sx. Pt continues to struggle at times with consistent utilization. Team Recommendations:: Client expected to complete the aftercare program in approximately 9 weeks and progress will be reassessed at week 8 in the program. Recommended to continue in Aftercare as well as regular outpatient counseling to maintain gains and prevent decompensation. Pt additionally has been given referral information and is encouraged to follow-up with grief specific counseling services.
== END 2020-04-27 23:59 ==
LOC: BHOG 13:50
PROVIDERS: PCP Pediatrics; Referring Provider Psychiatry & Neurology Psychiatry; Visit Provider Psychiatry & Neurology Psychiatry
DX: F33.2 Major depressive disorder, recurrent severe without psychotic features (principal); F41.1 Generalized anxiety disorder
CPT/HCPCS: 90853

== ENCOUNTER 2020-04-29 14:00 | Outpatient (RCR) | payer OTHER, SELFPAY ==
--- NOTE | 2020-04-29 14:05 | BH.SGPN.GN ---
Behaviors/Verbalizations/Mental Status: []Client alert and oriented, neatly dressed and groomed. Eye contact good. Motor activity appropriate. Speech within normal limits. Affect unable to gather due to wearing a mask for COVID-19 protocol, mood euthymic and anxious. Thoughts linear, logical, no signs of hallucinations or delusions. Client Response/Progress/Benefit: []Client responded well to session, receptive to feedback and sharing supportive statements to peers. Client reports he has a lot of positives and a lot of stressors today. Client reviewed his GAPs and shared he has been working on consistently practicing skills for maintenance. Client reports using deep breathing, communicating more with supports, and being social. Client's stressor today is that he has been experiencing grief as client recently lost his dog and the anniversary of his brother's passing is this month. Client able to identify ways he can support himself during this difficult time. Client participated in the group discussion of maintenance and the benefits of creating a maintenance plan. Client contributed as the group discussed what components make up a maintenance plan. Client created his own maintenance plan for depression and anxiety. Client identified warning signs which included:loss of interest, apathy, isolation, lack of sleep, increased heart rate, and tension. Client's coping skills included: opposite action, distraction with his dad, deep breathing, and mindfulness. Client reported he can also talk with his supports and ask others to hang out when he recognizes warning signs. Appeared to benefit from creating a maintenance plan to promote gains and prevent setbacks. Will continue aftercare next week. Narrative Note: []
--- NOTE | 2020-05-06 14:00 | BH.SGPN.GN ---
Behaviors/Verbalizations/Mental Status: []Client alert and oriented, casual appearance. Eye contact fair. Motor activity appropriate. Speech within normal limits. Affect constricted, mood depressed. Thoughts linear, logical, no signs of hallucinations or delusions. Client Response/Progress/Benefit: []Pt engaged in session as evidenced by pt openly sharing thoughts and feelings, listening attentively to others, and providing input throughout. Pt reported over the last week he accomplished his goal of engaging in maintenance skills. Pt stated he has been using his skills of opposite action and grounding. Pt reported he is feeling stressed because recently had to put his dog down and the 3rd anniversary of his brothers is coming up soon. Pt reported he is trying to focus on taking care of himself, but is experiencing many grief waves. Pt engaged in discussion about benefits of self-care. Pt stated he believes he has slipped back with not engaging in self-care as consistently. Pt stated for his self-care plan for the week he will engage in: working outside, hang with family, apply for a job, cook a meal, writing, write a poem. Pt seemed to benefit from creating a self-care plan to increase consistent use of self-care. Pt progress slightly decompensating as evidenced by pt reporting feeling disconnected and down mood. Pt to continue aftercare group to improve mood, increase healthy coping skills, and prevent further decompensation. Narrative Note: []
--- NOTE | 2020-05-13 14:07 | BH.SGPN.GN ---
Behaviors/Verbalizations/Mental Status: [] Client alert and oriented, casually dressed. Eye contact fair to good. Motor activity appropriate. Speech within normal limits. Affect constricted, mood dysthymic. Thoughts linear, logical, no signs of hallucinations or delusions. Client Response/Progress/Benefit: []Pt responded well to session AEB pt providing input during discussion and listening attentively to peers. Pt reported he is experiencing increased grief today as tomorrow is the anniversary of the day his brother . Expressed that although this is a heavier time of year, he has taken the initiative to create a self-care plan for himself tomorrow. Expressed plans to use his new job as a healthy distraction for part of the day and then spend time journaling and reading as a means of decompressing and processing his emotions for the day. Shared this as progress compared to how he has managed symptoms of grief in the past. Connected with others during discussion and agreed that engaging in self-advocacy can be difficult when it involves setting or maintaining boundaries with oneself or loved ones. Connected with fellow participants who indicated struggling with self-advocacy out of fears of being a burden or letting other?s down. Pt worked with group to identify strategies to overcome barriers and increase ability to advocate for oneself. Pt reported he wants to work on improving self-advocacy by spending more time identifying, reflecting upon, and appropriately processing his emotions with himself and his supports. Pt seemed to benefit from reviewing treatment progress and skill application, as well as learning about how to increase self-advocacy. Pt to continue aftercare program to maintain treatment progress, continue use of self-accountability, promote ongoing skill application, and prevent decompensation. Narrative Note: []
--- NOTE | 2020-05-20 14:00 | BH.SGPN.GN ---
Behaviors/Verbalizations/Mental Status: []Client alert and oriented, neatly dressed and groomed. Eye contact good. Motor activity appropriate. Speech within normal limits. Affect unable to gather due to wearing a mask for COVID-19 protocol, mood dysthymic. Thoughts linear, logical, no signs of hallucinations or delusions. Client Response/Progress/Benefit: []Client responded well to session, quiet, but still listening to peers. Client stated overall the past week has been good but exhausting. Client has been coping with the anniversary of his brother's and recently having to put down his dog. Client shared that he recognizes his warning signs for depression and has been applying coping skills such as deep breathing and thought challenging. Client contributed somewhat to the discussion on gratitude and its benefits. Client attentive during discussion of internal vs. external gratitude. Client reported he is grateful for his ability to keep getting back up. Client stated this week he wants to work on verbally saying at least one thing a day he is grateful for. Appeared to benefit from connecting with peers rather than isolating. Will continue IOP aftercare to promote mood stability and use of healthy coping skills. Narrative Note: []
--- NOTE | 2020-05-27 11:57 | BH.MTP_ITS ---
Treatment Plan Review Date of Admission:: 04/01/20 Date of Treatment Plan Review:: 05/27/20 Admitting Diagnoses:: Major depressive disorder recurrent severe without psychosis; generalized anxiety disorder Current Diagnoses:: Major depressive disorder recurrent severe without psychosis; generalized anxiety disorder Patient's Response to Treatment:: Pt has continued to attend program consistently and remains an active participant. Pt has done well to challenge himself to contribute to group discussion, even when feeling uncomfortable and has made progress in overall ability to connect treatment materials with his own life and personal areas of progress. He completed another DSM-5 cross cutting scale at the 8-week treatment margarita. Notes a 50% reduction in depression scores and 25% reduction in anxiety scores since beginning aftercare tx. Pt scores reflect an overall ability to continue to maintain gains 2 months after completing the IOP treatment program. Pt reported that he continues to feel more confident in his ability to encourage himself to do the things that will ultimately continue to promote his mental health and wellness. He continues to utilize skills of reading, thought challenging, opposite action, and affirmational statements. Pt reports that he has been continuing to meet with his outpatient counselor on a weekly basis, though has not pursued grief specific counseling services. Expressed feeling he has laxed in some areas of progress such as engaging in activities he enjoys as well as giving himself credit for small accomplishments. Client expected to complete the aftercare program in approximately 4 weeks and progress will be reassessed at week 12 in the program. Will continue in Aftercare to maintain gains and prevent decompensation. Status of Current Problems and Symptoms: Client has improved in overall ability to manage his grief related triggers and has made progress in improving overall self-confidence levels through continued use of positive self-talk and reaching out for help as needed. Client does however continue to struggle at times with managing anxiety and distorted thought patterns at times; however, has made much progress in this area and reports improved skill use. Additionally, client has recently reported feeling he has ?regressed? some in terms of depression management, though appears to minimize his progress. Problem #1 Problem Name:: Pt will maintain or see a reduction in symptoms AEB pt?s score on the DSM 5 Status of Goals:: Pt is continuing to make progress on objectives 1 and 2 AEB reduction in overall DSM 5 scores. Pt however has recently been struggling with giving himself credit for ongoing progress and has reported feeling he could be doing more to continue to support his mental health and wellness. Pt has continued to remain actively engaged throughout the aftercare program, though struggles at times with negative self-talk. He reports continued ability to recognize and address mental health sx prior to further escalation and is working to improve on ability to identify and reframe self-deprecating thoughts and language. Obj 1- Able to continue applying healthy coping skills of opposite action, thought challenging, positive self-talk, as well as checking-in with supports. Though per self-report, pt is struggling with increased negative self- talk which has impacted overall depression levels, though reports continued ability to manage such thoughts without escalating to prior depression levels. Pt continues to struggle at times with consistency. Obj 2- not complete. Has continued to identify several maintenance strategies to utilize in order to maintain progress as well as continue to improve current mental health sx. Pt continues to struggle at times with consistent utilization and believing in his own abilities to effectively maintain the progress he has made. Team Recommendations:: Client expected to complete the aftercare program in approximately 4 weeks and progress will be reassessed at that time. Recommended to continue in Aftercare as well as regular outpatient counseling to maintain gains and prevent decompensation.
== END 2020-05-28 23:59 ==
LOC: BHOG 14:00
PROVIDERS: PCP Pediatrics; Referring Provider Psychiatry & Neurology Psychiatry; Visit Provider Psychiatry & Neurology Psychiatry
DX: F33.2 Major depressive disorder, recurrent severe without psychotic features (principal); F41.1 Generalized anxiety disorder
CPT/HCPCS: 90853; H0035

== ENCOUNTER 2020-06-24 14:00 | Outpatient (RCR) | payer OTHER, SELFPAY ==
--- NOTE | 2020-06-03 02:01 | BH.SGPN.GN ---
Behaviors/Verbalizations/Mental Status: []Client alert and oriented, casual dress, hygiene tended to. Eye contact good. Motor activity appropriate. Speech within normal limits. Affect unable to assess due to client wearing mask per COVID-19 protocol, mood euthymic and anxious. Thoughts linear, logical, no signs of hallucinations or delusions. Client Response/Progress/Benefit: []Pt reported in the past week he has been working on being more proactive in checking-in with himself. Discussed feeling he had ?regressed over the last few weeks? However did well to challenge this and practice self-compassion as he was experiencing trauma anniversary dates. Able to identify use of positive self-talk and scheduling outpatient therapy as skills for continued progress. Discussed that he does not have a consistent routine for promoting self-care and maintaining gains but would like to work on developing one. Pt worked cooperatively with group to identify benefits of having a daily routine which included: improving sense of purpose, increasing motivation, and improving follow through. Pt engaged in brainstorming of various daily routine ideas. Pt completed task of creating a daily morning routine and identifying a supportive mantra. Pt stated his morning routine will start by incorporating uplifting music into his hygiene routine each morning. Morning mantra identified as reminding himself ?I may make mistakes, but I?ll continue to show up anyway? as a reminder to compassionate with himself. Pt seemed to benefit from support from peers and learning about benefits of routine. Progress noted in reports of improved use of positive self-talk and reports of continued depression management. Pt to continue aftercare group to improve consistent use of healthy coping, maintain gains, and prevent decompensation. Narrative Note: []
--- NOTE | 2020-06-24 14:22 | BH.MTP_ITS ---
Treatment Plan Review Date of Admission:: 04/01/20 Date of Treatment Plan Review:: 06/24/20 Admitting Diagnoses:: Major depressive disorder recurrent severe without psychosis; generalized anxiety disorder Current Diagnoses:: Major depressive disorder recurrent severe without psychosis; generalized anxiety disorder Patient's Response to Treatment:: Client has continued to remain mostly engaged in IOP aftercare AEB overall positive participation in group discussions, as well as self-report of increased application of coping skills, and improved overall mood. Client attendance in IOP Aftercare has remained mostly consistent; however, he has had to cancel on a few occasions due to illness and potential COVID-19 exposure. Client has since been cleared by his physician to return to program and has done well to engage since returning. At times client has struggled with continuing to remain consistent with skill application outside of treatment environment, specifically in managing sx of depression and negative self-talk. However, has reported significant improvement in consistency since last review. Client continues to regularly attend outpatient counseling and reports this to be helpful as well. Status of Current Problems and Symptoms: Continues to struggle with negative self-talk, difficulty managing anxiety associated with personalization, and inconsistent follow through with coping at times. However, has made significant improvements in these areas. Client continues to report improvements in overall self-esteem and has been able to maintain stable employment for the past month as a result. Problem #1 Problem Name:: Pt. will maintain or see a reduction in sx AEB client score on the DSM-5 Status of Goals:: Objective 1- Complete with ongoing work encouraged. Client has continued to do well to implement healthy coping strategies identified in order to maintain current gains and continue to make progress in treatment. This is evidenced by client ability to successfully secure and sustain employment, reports of no suicidal ideation, and reports of continued progress in implementation of healthy coping skills such as reading, writing,, and positive self-talk. Objective 2- Complete with ongoing work encouraged. Client has consistently reporting increased use of affirmational statements, self- accountability skills, and challenging his perspective. He reports benefiting from new maintenance skills learned and is encouraged continues focus on continued skill consistency following discharge next week. Team Recommendations:: Recommended client to discharge from IOP aftercare group next week. Client recommended to continue attending regular outpatient counseling in order to maintain gains.
== END 2020-06-28 23:59 ==
LOC: BHOG 14:00
PROVIDERS: PCP Pediatrics; Referring Provider Psychiatry & Neurology Psychiatry; Visit Provider Psychiatry & Neurology Psychiatry
DX: F33.2 Major depressive disorder, recurrent severe without psychotic features (principal); F41.8 Other specified anxiety disorders
CPT/HCPCS: 90853

== ENCOUNTER 2020-07-01 14:00 | Outpatient (RCR) | payer OTHER, SELFPAY ==
--- NOTE | 2020-07-01 14:00 | BH.SGPN.GN ---
Behaviors/Verbalizations/Mental Status: []Client alert and oriented, disheveled appearance. Eye contact good. Motor activity appropriate. Speech within normal limits. Affect unable to gather due to wearing a mask for COVID-19 protocol, mood euthymic. Thoughts linear, logical, no signs of hallucinations or delusions. Client Response/Progress/Benefit: []Client responded well to session, checking in using GAPS. Client?s emotion today is ?exhausted? and stated he has been doing well, but client?s work is physically straining. Client reported multiple wins including getting a puppy, work, and being self-aware. Client followed his gameplan which has been to practice coping skills. Client has been using deep breathing, thought challenging, and mindfulness to manage mood. Receptive of discussion on self-talk and its influence in maintaining long-term mental health stability. Client shared personal benefits of practicing affirmations such as more self-acceptance. Provided strategies for improving effective creation and application of believable personal affirmations. Client wrote out two affirmation statements to put in his lunchbox. Statements were ?I deserve to have my voice be heard? and ?$100 is still worth $100 crumbled up.? Progress noted in client?s self-report of improved mood stability and confidence. Client to discharge from [facility] aftercare group as he has been able to maintain progress and no longer meets criteria for this level of care. Narrative Note: []
--- NOTE | 2020-07-01 14:37 | BH.DS_ITS ---
Discharge Summary - Demographics Date of Admission:: 04/01/20 Discharge Date: 07/01/20 Presenting Problems at Admission:: Client discharged from IOP tx and transitioned to IOP aftercare to maintain gains made in IOP and to reinforce healthy coping skills. At admission to IOP aftercare, client reported experiencing some continued symptoms of anxiety, prolonged grief, and depression. Client was also experiencing life stressors including the COVID-19 pandemic, struggling to secure employment, ongoing relationship issues, and upcoming anniversary dates related to his brother who . Despite these stressors, client reported ability to cope with his mental health and was activity using healthy skills of thought challenging, positive self-talk, and self-care. Discharge Diagnoses:: Major depressive disorder recurrent severe without psychosis; generalized anxiety disorder Reason for Discharge:: Client has demonstrated ability to maintain overall treatment gains as well as further progress in his mental health treatment goals AEB self-report and overall DSM-5 scores reducing by 50%. Additionally, client has accomplished treatment goals and no longer meets criteria for IOP aftercare level of tx. - Treatment Progress During Treatment & Response: Client was engaged in IOP aftercare as evidenced by client's participation in group discussions and self-report of imp roved consistency in applying coping skills, as well as identifying new skills to further improve overall symptom management. At discharge, client?s DSM-5 scores decreased by 50% indicating a further improvement in ability to manage mental health symptoms. Client?s scores for anxiety reduced by 33% from aftercare admission score, depression reduced by 100% overall, and irritability saw a 100% decrease. At discharge, client was reporting an improved mood, consistent use of healthy coping skills, reduced interpersonal issues, and better application of self-care skills. Issues Still to be Addressed:: Client can benefit from ongoing outpatient counseling and medication management to promote gains and reinforce healthy coping skills. Client can continue to work on healthy communication, thought challenging, self-confidence, and self-advocacy. Additionally recommended outpatient grief counseling to address ongoing issues related to prolonged grief. Discharge Recommendations/Instructions:: Client is recommended to continue counseling with his outpatient therapist, Ahmet Thomas, at [facility]. Pt will continue seeing psychiatrist through [facility] for ongoing medication management. Discharge Handout: Complete Discharge Handout with client on aftercare options and continuity of care.
== END 2020-07-28 23:59 ==
LOC: BHOG 14:00
PROVIDERS: PCP Pediatrics; Referring Provider Psychiatry & Neurology Psychiatry; Visit Provider Psychiatry & Neurology Psychiatry
DX: F33.2 Major depressive disorder, recurrent severe without psychotic features (principal); F41.8 Other specified anxiety disorders
CPT/HCPCS: 90853